=== PATIENT | male | born 1940 | race Caucasian/White ===

== ENCOUNTER 2019-06-01 01:12 | Day surgery (SDC) | payer MEDICARE, SELFPAY ==
[2019-05-12 09:52] VITALS: BMI 24.5
[2019-06-01 07:51] VITALS: BP 134/84; PULSE 58; RESP 16; TEMP 35.9; O2SAT 98
[2019-06-01] MEDS: LACTATED RINGERS 1,000 ML 150 ML IV CONT (08:06)
--- NOTE | 2019-06-01 08:16 | PM.IMHP ---
H&P: HPI History of Present Illness Chief complaint: Duodenal Ulcer Narrative: Micheal Espinoza is a 79 year old male presents today for EGD. Patient any syncopal episode and melena in 01/2019. EGD was performed by Dr. Jeffrey and he had noted two duodnal ulcers that were not actively bleeding. He was on PPI BID for atleast 3 months and does not remember when he stopped taking it. He does complain of abdominal bloating after he lays down at night but relates it to eating junk food . He denies any dysphagia, oydnophagia, acid reflux, heartburn, or abdominal pain. He has had no further melena and denies hematochezia, constipation and diarrhea. Denies abnormal weight loss, fever or chills. Denies family hx of GI maligancies. Review of Systems Review of Systems: All systems reviewed & are unremarkable except as noted in HPI and below PMFSH Past Medical History Medical History (Updated 06/01/19 @ 08:22 by Emelia Santoro, [employer] SUPERVISOR) Duodenal ulcer disease Hx of adenomatous colonic polyps Hx of deep venous thrombosis Hx of prostatic malignancy JOE (iron deficiency anemia) Surgical History Surgical History (Updated 06/01/19 @ 08:21 by Emelia Santoro, [employer] SUPERVISOR) Hx of cholecystectomy Hx of colonoscopy Hx of esophagogastroduodenoscopy Hx of external ear surgery Social History Social History Smoking status: Former smoker Second hand tobacco smoke exposure: No Smoking end date: 04/19/1961 Alcohol intake: never Meds Home Medications and Allergies Home Medications Medication Instructions Recorded Confirmed Type ferrous sulfate 325 mg (65 mg 325 mg PO DAILY #30 tablet 03/03/19 06/01/19 Rx iron) tablet midodrine 10 mg tablet 10 mg PO TID #90 tablet 03/03/19 06/01/19 Rx pantoprazole 40 mg tablet,delayed 40 mg PO BID #60 tablet 03/03/19 05/12/19 Rx release Allergies Allergy/AdvReac Type Severity Reaction Status Date / Time No Known Allergies Allergy Unknown Verified 06/01/19 07:47 Vital Signs Vital Signs - 24 hr 06/01/19 07:51 Temperature 35.9 C L Pulse Rate 58 L Respiratory Rate 16 Blood Pressure 134/84 Pulse Oximetry 98 Exam Const: General: cooperative, healthy appearing, comfortable, alert and awake Nutritional Appearance: average body habitus Orientation/consciousness: oriented to person, oriented to place, oriented to time and patient oriented x3 Limitations: no limitations HENMT: Head: normal to inspection and normocephalic Ears: hearing grossly impaired (hearing aid noted in left ear) Mouth: Yes Normal oral and palatal mucosa present and Yes moist mucous membranes Neck: Neck: normal visual inspection, supple and no JVD Carotids: no bruits Resp: Effort & Inspection: normal respiratory effort and no respiratory distress Auscultation: clear to auscultation bilaterally Cardio: Rate: regular rate Rhythm: regular rhythm Heart sounds: S1 normal heart sound present, S2 normal heart sound present, no gallops, no murmurs and no rubs GI: Inspection: normal to inspection GI Palp: No abdominal tenderness and No No hepatosplenomegaly present Percussion: Yes normal to percussion Auscultation: normal bowel sounds Rectal Exam: deferred Skin: General skin exam: normal color Lesions: no lesions Rashes: no rashes Neuro: General: oriented to person, oriented to place, oriented to time, patient oriented x3 and moves all extremities Cognition (Neuro): normal cognition Speech: normal speech Gait exam (Neuro): Normal gait present Extrem: General: normal to inspection Psych: Appearance: grossly normal Mental Status: mental status grossly normal Speech and movement: Normal speech and movement present Affect: normal affect Attitude: cooperative Thought process: Normal thought process present Assessment and Plan Assessment and plan (1) Duodenal ulcer disease: Code(s): K26.9 - Duodenal ulcer, unspecified as acute or chronic, without
--- NOTE | 2019-06-01 08:38 | WPDANESEPPF ---
Anes - Initial Pre Proc Eval Procedure: Operation Date: 06/01/19 08:30 Proposed Procedures p Esophagogastroduodenoscopy - Martir Jeffrey DO Date/Time: 06/01/19 08:38 Surgeon: Martir Jeffrey DO Pre Op Diagnosis: Duodenal Ulcer Patient Data Age: 79 Gender: M Height: 5 ft 11 in Weight: 81.2 kg Last Vital Signs Temp 96.7 F L 06/01/19 07:51 Pulse 58 L 06/01/19 07:51 Resp 16 06/01/19 07:51 BP 134/84 06/01/19 07:51 Pulse Ox 98 06/01/19 07:51 Allergies Allergy/AdvReac Type Severity Reaction Status Date / Time No Known Allergies Allergy Unknown Verified 06/01/19 07:47 Home Medications Medication Instructions Recorded Confirmed Type ferrous sulfate 325 mg (65 mg 325 mg PO DAILY #30 tablet 03/03/19 06/01/19 Rx iron) tablet midodrine 10 mg tablet 10 mg PO TID #90 tablet 03/03/19 06/01/19 Rx pantoprazole 40 mg tablet,delayed 40 mg PO BID #60 tablet 03/03/19 05/12/19 Rx release Patient hx anesthesia problems: none Family hx anesthesia problems: none PMFSH Past Medical History Medical History (Updated 06/01/19 @ 08:22 by Emelia Santoro, [employer] ENGINEER[employer]) Duodenal ulcer disease Hx of adenomatous colonic polyps Hx of deep venous thrombosis Hx of prostatic malignancy JOE (iron deficiency anemia) Surgical History Surgical History (Updated 06/01/19 @ 08:21 by Emelia Santoro, [employer] ENG[employer]ER[employer]) Hx of cholecystectomy Hx of colonoscopy Hx of esophagogastroduodenoscopy Hx of external ear surgery Social History Social History Smoking status: Former smoker Second hand tobacco smoke exposure: No Smoking end date: 04/19/1961 Alcohol intake: never Anes - Eval Final PreProcedure Day of Procedure 06/01/19 08:38 Patient weight: normal Heart: regular rate and rhythm Lungs: clear to auscultation Airway: Mallampati scale class II Neurological: alert and oriented Last oral intake: >/= 8 hours ASA classification: II Emergent: no Anesthetic plan: proceed Anesthesia type and monitoring: general GIVS and standard monitoring Informed Consent: The patient's anesthetic plan and its attendant risks and benefits were discussed with the patient/family/POA. Questions were solicited and answers provided to the satisfaction of the patient/family/POA.
[2019-06-01 08:59] VITALS: BP 101/52; PULSE 58; RESP 18; O2SAT 92
[2019-06-01 09:09] VITALS: BP 106/56; PULSE 57; RESP 15; O2SAT 97
[2019-06-01 09:19] VITALS: BP 137/79; PULSE 54; RESP 15; O2SAT 99
== END 2019-06-01 09:53 | disposition home or self-care (01) ==
PROVIDERS: PCP Internal Medicine; Visit Provider Internal Medicine Gastroenterology
PROC: 0DJ08ZZ Inspection of Upper Intestinal Tract, Via Natural or Artificial Opening Endoscopic (ICD-10-PCS; CPT 43235; principal; 2019-06-01 08:30)
DX: Z09 Encounter for follow-up examination after completed treatment for conditions other than malignant neoplasm (principal); K31.7 Polyp of stomach and duodenum; Z87.11 Personal history of peptic ulcer disease; D50.9 Iron deficiency anemia, unspecified; Z85.46 Personal history of malignant neoplasm of prostate; Z87.891 Personal history of nicotine dependence
CPT/HCPCS: 43239; 87081; 88305; 88342; J2704; J7120

== ENCOUNTER → 2020-05-28 14:29 | Outpatient (CLI) | payer MEDICARE, SELFPAY ==
--- NOTE | ~2020-05-28 | XR_ITS ---
EXAMINATION: XR chest 2V 05/28/2020 14:47 INDICATION: Cough and chest pain PROCEDURE: 2 view chest COMPARISON: Comparison to multiple prior studies sequentially, with oldest reviewed study dated 12/04. FINDINGS: The lungs are clear. The cardiomediastinal silhouette is within normal limits. There are no pleural effusions. There is no pneumothorax suspected. IMPRESSION: 1: NO ACUTE CARDIOPULMONARY DISEASE. Reviewed, dictated and finalized at location B. IT COORDINATOR
== END ==
PROVIDERS: PCP Internal Medicine; Visit Provider Internal Medicine
DX: R05 Cough (principal)
CPT/HCPCS: 71046

== ENCOUNTER → 2021-03-14 00:31 | Outpatient (CLI) | payer MEDICARE, SELFPAY ==
[2021-03-14 17:10] LABS: SARS-CoV-2 RNA PCR Positive
== END ==
PROVIDERS: PCP Internal Medicine; Visit Provider Internal Medicine
DX: U07.1 COVID-19 (principal)
CPT/HCPCS: C9803; U0003; U0005

== ENCOUNTER 2021-03-18 09:39 | Outpatient (RCR) | payer MEDICARE, SELFPAY ==
[2021-03-18] MEDS: ACETAMINOPHEN 325 MG TABLET 650 MG PO (14:39)
[2021-03-18] MEDS: FAMOTIDINE 20 MG TABLET PO (14:40)
[2021-03-18] MEDS: diphenhydrAMINE HCl CAP 25 MG CAPSULE PO (14:40)
[2021-03-18 14:46] VITALS: BP 107/68; PULSE 64; RESP 20; TEMP 36.2; O2SAT 98
[2021-03-18 16:15] VITALS: BP 110/66
--- NOTE | 2021-03-19 12:57 | PC.NURSE ---
Spoke to MR Espinoza and he is feeling better than yesterday,and he is doing well. He has no questions at this time.
== END 2021-03-18 16:00 ==
LOC: AMCINF 09:39
PROVIDERS: PCP Internal Medicine; Visit Provider Internal Medicine Hematology & Oncology
DX: U07.1 COVID-19 (principal)
CPT/HCPCS: A9270; M0243; Q0243

== ENCOUNTER 2022-04-21 10:59 | Outpatient (CLI) | payer MEDICARE, SELFPAY ==
[2022-04-21 12:33] LABS: Influenza A QL RT-PCR Negative (Negative); Influenza B QL RT-PCR Negative (Negative); SARS-CoV-2 RNA PCR Positive
== END 2022-04-21 11:00 | disposition home or self-care (01) ==
PROVIDERS: PCP Otolaryngology; Visit Provider Internal Medicine
DX: U07.1 COVID-19 (principal)
CPT/HCPCS: 87636

== ENCOUNTER 2022-09-01 09:56 | Emergency (ER) | payer MEDICARE, SELFPAY ==
--- NOTE | ~2022-09-01 | US_ITS ---
EXAMINATION:US venous doppler LE RT INDICATION:Right lower extremity pain TECHNIQUE: Multiple grayscale, color flow and Doppler images of the right lower extremity deep venous systems were obtained and reviewed. COMPARISON:No prior studies for comparison. FINDINGS: The common femoral, superficial femoral and popliteal veins demonstrate normal respiratory variation, augmentation and compressibility. Color flow is also seen within the posterior tibial, pe roneal, and profunda veins. There is superficial venous thrombosis of the right greater saphenous vei n. IMPRESSION: 1: No lower extremity deep venous thrombosis. 2: Superficial venous thrombosis of the right greater saphenous vein. Reviewed, dictated and finalized at location L.
[2022-09-01 10:00] VITALS: PULSE 72; RESP 18; TEMP 36.6; O2SAT 96
[2022-09-01 10:13] LABS: Basophils Absolute Auto 0.1 K/mm3 (0.0-0.1); Basophils Percent Auto 0.8 % (0.2-1.2); Eosinophils Absolute Auto 0.7 K/mm3 (0-0.3); Eosinophils Percent Auto 7.7 % (0-4.4); Hemoglobin 16.4 g/dL (14.0-18.0); Immature Granulocyte Absolute 0.02 K/mm3 (0.00-0.031); Immature Granulocyte Percent A 0.2 % (0-0.5); Lymphocytes Absolute Auto 1.82 K/mm3 (0.9-3.2); Lymphocytes Percent Auto 21.7 % (18.3-44.2); Mean Corpuscular HGB Conc 33.5 g/dl (32-36); Mean Corpuscular Volume 95.5 fl (80-100); Mean Platelet Volume 10.6 fl (7.4-10.4); Monocytes Absolute Auto 0.7 K/mm3 (0.1-0.6); Monocytes Percent Auto 8.7 % (2.6-8.5); Neutrophils Absolute Auto 5.1 K/mm3 (1.3-6.7); Neutrophils Percent Auto 60.9 % (45.5-73.1); Platelet Count Result 180 k/mm3 (150-375); Red Blood Count 5.13 M/mm3 (4.6-6.20); Red Cell Distribution Width 13.7 % (11.5-14.5); White Blood Count 8.4 K/mm3 (4.5-10.0)
[2022-09-01 10:22] LABS: Anion Gap 5 mmol/L (8-16); Blood Urea Nitrogen 17 mg/dL (9-20); Calcium 9.2 mg/dL (8.4-10.2); Carbon Dioxide 30 mmol/L (22-30); Chloride 103 mmol/L (98-107); Estimated CRCL calculation 44 ml/min; Estimated Glomerular Filt Rate 58; Glucose 131 mg/dL (65-110); Potassium 4.1 mmol/L (3.4-5.0); Sodium 138 mmol/L (137-145)
[2022-09-01 10:40] LABS: Partial Thromboplastin Time 28.8 SECONDS (22.3-36.8)
[2022-09-01 10:57] LABS: INR 1.1; Prothrombin Time 14.5 Seconds (11.1-14.7)
--- NOTE | 2022-09-01 11:42 | ED.EXTPRO ---
HPI - Extremity Problem General Chief complaint: Extremity Problem,Nontraumatic Stated complaint: bump on leg, r/o dvt Time Seen by Provider: 09/01/22 10:41 Source: patient Mode of arrival: ambulatory Limitations: no limitations History of Present Illness HPI Narrative: This is an 82-year-old male presents the ED with chief complaint of right thigh vein swelling x2 days. He has additional complaints of some right lower leg redness and swelling. States the areas are painful. He feels that they might be separate issues. PMH of DVT in the past. Denies any chest pain, shortness of breath, fevers, chills. Related Data Home Medications Medication Instructions Recorded Confirmed aspirin 81 mg tablet,delayed 325 mg PO DAILY 09/01/22 09/01/22 release (Adult Low Dose Aspirin) Allergies Allergy/AdvReac Type Severity Reaction Status Date / Time No Known Allergies Allergy Unknown Verified 09/01/22 13:49 Review of Systems Review of Systems: CONSTITUTIONAL: Denies fever, chills, or sweats. EYES: Denies visual changes, redness, or discharge. ENT: Denies rhinorrhea, congestion, sore throat, or otalgia. CARDIOVASCULAR: Denies chest pain, palpitations, or edema. RESPIRATORY: Denies cough or dyspnea. GASTROINTESTINAL: Denies abdominal pain, nausea, vomiting, or diarrhea. GENITOURINARY: Denies dysuria or hematuria. SKIN: Denies rash or itching. MUSCULOSKELETAL: See HPI NEUROLOGIC: Denies headache, numbness, dizziness, or weakness. PSYCHIATRIC: Denies anxiety or depression. [facility] Past Medical History Medical History Duodenal ulcer disease Hx of adenomatous colonic polyps Hx of deep venous thrombosis Hx of prostatic malignancy JOE (iron deficiency anemia) Surgical History Surgical History Hx of cholecystectomy Hx of colonoscopy Hx of esophagogastroduodenoscopy Hx of external ear surgery Family History Family History Other Carcinoma of colon Family history of malignant neoplasm of thyroid Social History Social History Smoking packs per day: 1 Smoking cigarettes per day: 20.0 Years smoked: 5 Smoking pack-years: 5.00 Smoking status: Former smoker Tobacco type: cigarettes Second hand tobacco smoke exposure: No Smoking end date: 04/19/1961 Alcohol intake: never Substance use: never Lack of Transportation: No Lack of Food: Never True Current Housing: I Have Housing Concerned About Future Housing: No Difficulty Paying Gas/Electric Bills: No Difficulty Paying for Meds: No Currently Unemployed: No Education: Master's Degree or Higher Difficulty w/ Childcare or Family Care: No Spiritual care concerns: No Exam Narrative: GENERAL: Well-appearing, well-nourished, and in no acute distress. HEAD: Normocephalic, atraumatic. EYES: PERRLA and EOMI. ENT: Nares clear, no rhinorrhea or epistaxis. Mucous membranes moist. Oropharynx without tonsillar hypertrophy exudate or other lesions. NECK: Supple. No adenopathy or masses. CHEST: No respiratory distress. Clear to auscultation. No wheezes rales or rhonchi HEART: Regular rate and rhythm. No murmur heard. Normal peripheral pulses. ABDOMEN: Soft, nontender, nondistended, normal active bowel sounds. EXTREMITIES: Right medial thigh palpable cord. Mild tenderness. In the right lower leg there is a 4 cm area of erythema. There is a central punctate lesion with this. Skin is slightly raised. No significant lower extremity edema on the right side. Left lower extremity is benign SKIN: Warm, dry, no rash. NEURO: Alert and oriented x3. No focal deficits. PSYCH: Normal mood and affect. Course Course Emergency Course: Consultation 1149: Spoke with patient's PCP, he prefers to start on Lovenox dose here as well as aspir
[2022-09-01] MEDS: CEPHALEXIN 500 MG CAPSULE PO (11:56)
[2022-09-01] MEDS: ASPIRIN 325 MG TABLET PO (11:56)
[2022-09-01] MEDS: ENOXAPARIN 100 MG/ML SYRINGE 85 MG SUB-Q (11:57)
[2022-09-01 12:12] VITALS: BP 137/92; PULSE 68; RESP 16; O2SAT 100
== END 2022-09-01 12:15 | disposition home or self-care (01) ==
PROVIDERS: Emergency Medicine; Emergency Provider Physician Assistant; PCP Internal Medicine
DX: I82.811 Embolism and thrombosis of superficial veins of right lower extremity (principal); M79.604 Pain in right leg; D50.9 Iron deficiency anemia, unspecified; Z90.49 Acquired absence of other specified parts of digestive tract; Z85.46 Personal history of malignant neoplasm of prostate; Z86.718 Personal history of other venous thrombosis and embolism; Z86.010 Personal history of colon polyps; Z87.891 Personal history of nicotine dependence; Z79.82 Long term (current) use of aspirin
CPT/HCPCS: 36415; 80048; 85025; 85610; 85730; 93971; 96372; 99284; A9270; J1650

== ENCOUNTER 2022-09-27 11:53 | Observation (INO) | payer MEDICARE, SELFPAY ==
[2022-09-27] VITALS (22 sets, daily range): BP systolic 76–155; BP diastolic 59–130; PULSE 55–90; RESP 12–32; TEMP 35.6–36.1; O2SAT 96–100; BMI 26.7
--- NOTE | 2022-09-27 12:16 | ED.GIBLEED ---
HPI - GI Bleed General Chief complaint: GI Bleed Stated complaint: dizziness Time Seen by Provider: 09/27/22 12:04 Source: patient and family Mode of arrival: ambulatory Limitations: no limitations History of Present Illness HPI Narrative: 82 years old white female came by private car from home complaining of funny feeling in the head and weakness when he gets up to walk. Also been feeling weird feeling in the stomach like bloating. He denies any fever, chills, nausea, vomiting. History of cholecystectomy and peptic ulcer disease. Currently patient on no medications. He does not smoke or drink or uses drugs. Related Data Home Medications Medication Instructions Recorded Confirmed aspirin 81 mg tablet,delayed 325 mg PO DAILY 09/01/22 09/01/22 release (Adult Low Dose Aspirin) Allergies Allergy/AdvReac Type Severity Reaction Status Date / Time No Known Allergies Allergy Unknown Verified 09/27/22 12:11 Review of Systems Review of Systems: All systems reviewed & are unremarkable except as noted in HPI and below PMFSH Past Medical History Medical History Duodenal ulcer disease Hx of adenomatous colonic polyps Hx of deep venous thrombosis Hx of prostatic malignancy JOE (iron deficiency anemia) Surgical History Surgical History Hx of cholecystectomy Hx of colonoscopy Hx of esophagogastroduodenoscopy Hx of external ear surgery Family History Family History Other Carcinoma of colon Family history of malignant neoplasm of thyroid Social History Social History Smoking packs per day: 1 Smoking cigarettes per day: 20.0 Years smoked: 5 Smoking pack-years: 5.00 Smoking status: Former smoker Tobacco type: cigarettes Second hand tobacco smoke exposure: No Smoking end date: 04/19/1961 Alcohol intake: never Substance use: never Lack of Transportation: No Lack of Food: Never True Current Housing: I Have Housing Concerned About Future Housing: No Difficulty Paying Gas/Electric Bills: No Difficulty Paying for Meds: No Currently Unemployed: No Education: Master's Degree or Higher Difficulty w/ Childcare or Family Care: No Spiritual care concerns: No Exam Narrative: General appearance: Well-developed, well-nourished Skin: Normal color Head: Normocephalic, nontraumatic Eyes: Clear conjunctiva ENT: Oropharynx normal, ears normal, nose normal Neck: Supple, nontender Chest and respiratory: Airway patent, no respiratory distress, no accessory muscle use Heart: Regular rate/rhythm Abdomen: Soft, nontender, no organomegaly, quiet bowel sounds rectal exam showed dark black tarry stool, guaiac positive Vascular: Normal peripheral pulses, normal capillary refill. Musculoskeletal: Normal range of motion, nontender back Neurologic: Alert and oriented ?3, PUMP AND STILL OPERATOR is normal as tested, no gross motor deficit Course Reevaluation(s) Reevaluation #1: Patient denies any new symptoms since arrival to the ED until the time of admission. Date: 09/27/22 Time: 13:09 Consultations Consultation #1: Dr. Gomez Date: 09/27/22 Time: 13:08 Vital Signs Vital signs: Vital Signs Temperature 36.1 C L 09/27/22 11:55 Pulse Rate 69 09/27/22 11:55 Respiratory Rate 16 09/27/22 11:55 Blood Pressure 103/64 09/27/22 11:55 Pulse Oximetry 100 09/27/22 11:55 Oxygen Delivery Room Air 09/27/22 11:55 Temperature 36.1 C L 09/27/22 11:55 Pulse Rate 63 09/27/22 12:30 Respiratory Rate
[2022-09-27 12:23] LABS: Basophils Absolute Auto 0.1 K/mm3 (0.0-0.1); Basophils Percent Auto 0.8 % (0.2-1.2); Eosinophils Absolute Auto 0.6 K/mm3 (0-0.3); Eosinophils Percent Auto 8.5 % (0-4.4); Hematocrit 37.6 % (42.0-52.0); Hemoglobin 12.8 g/dL (14.0-18.0); Immature Granulocyte Absolute 0.04 K/mm3 (0.00-0.031); Immature Granulocyte Percent A 0.6 % (0-0.5); Lymphocytes Absolute Auto 1.35 K/mm3 (0.9-3.2); Lymphocytes Percent Auto 20.8 % (18.3-44.2); Mean Corpuscular Hemoglobin 32.4 pg (26-34); Mean Corpuscular Volume 95.2 fl (80-100); Mean Platelet Volume 10.5 fl (7.4-10.4); Monocytes Absolute Auto 0.5 K/mm3 (0.1-0.6); Monocytes Percent Auto 7.2 % (2.6-8.5); Neutrophils Percent Auto 62.1 % (45.5-73.1); Platelet Count Result 221 k/mm3 (150-375); Red Blood Count 3.95 M/mm3 (4.6-6.20); Red Cell Distribution Width 14.9 % (11.5-14.5); White Blood Count 6.5 K/mm3 (4.5-10.0)
[2022-09-27] MEDS: PANTOPRAZOLE SODIUM IV 40 MG VIAL IV PUSH (12:24)
[2022-09-27 12:33] LABS: Alanine Aminotransferase 21 U/L (6-50); Albumin Level 3.7 g/dL (3.5-5.1); Alkaline Phosphatase 37 U/L (38-126); Anion Gap 4 mmol/L (8-16); Aspartate Amino Transferase 25 U/L (17-59); Blood Urea Nitrogen 14 mg/dL (9-20); Calcium 9.2 mg/dL (8.4-10.2); Carbon Dioxide 26 mmol/L (22-30); Chloride 105 mmol/L (98-107); Estimated Glomerular Filt Rate 58; Glucose 151 mg/dL (65-110); Potassium 4.1 mmol/L (3.4-5.0); Sodium 135 mmol/L (137-145)
[2022-09-27 12:35] LABS: INR 1.1; Partial Thromboplastin Time 28.4 SECONDS (22.3-36.8); Prothrombin Time 14.4 Seconds (11.1-14.7)
--- NOTE | 2022-09-27 13:22 | PM.IMHP ---
H&P: HPI History of Present Illness Date/Time: 09/27/22 22:00 Chief Complaint: Weakness and dizziness. Narrative: This is a very pleasant 82-year-old male with history of peptic ulcers, colon polyps, and prostate cancer who presented to the emergency department via private vehicle for evaluation of weakness and dizziness. Patient provides the following history. The last several days he has been experiencing lightheadedness and dizziness, particularly when going from a seated to standing position. He has also had a mild discomfort in his abdomen with bloating and indigestion. Several days ago he took a Pepto-Bismol which did not seem to help much. He has also noticed that his stools are quite a bit darker than usual. He is not currently taking any medications at home however it should be noted that he was seen in the emergency department on 09/01/2022 with swelling in his right thigh at which time he was diagnosed with a superficial thrombus of the greater saphenous vein. He was prescribed 325 mg of aspirin which he took for may be a couple of weeks only. The pain and swelling in that pain has improved significantly. He denies significant alcohol and caffeine use. He has not had any recent change in stressors. He denies nausea and vomiting. He has not noticed any bright red blood in the stools. In the ED his stool was dark and Hemoccult positive. Hemoglobin today is 12 on his baseline is around 16. He is being admitted in this setting for close monitoring and GI consultation. Review of Systems Review of Systems: Twelve systems were reviewed and are negative except for as per HPI. [facility] Past Medical History Medical History (Updated 09/28/22 @ 01:16 by Virginia Lau PA-C) Acute blood loss anemia Adenomatous colon polyp Deep venous thrombosis Duodenal ulcer disease Gastroesophageal reflux disease Hyperlipidemia Iron deficiency anemia Lightheadedness Melena Prostate cancer Surgical History Surgical History (Updated 09/27/22 @ 13:24 by Virginia Lau PA-C) History of cataract extraction with lens replacement History of cholecystectomy (2012) History of colonoscopy with polypectomy History of ear surgery History of esophagogastroduodenoscopy History of tonsillectomy Family History Family History Other Carcinoma of colon Family history of malignant neoplasm of thyroid Social History Social History (Updated 09/29/22 @ 12:56 by Virginia Lau PA-C) Social History: Surrogate medical decision maker: Sven Espinoza, son. Code status: Full code. Smoking packs per day: 1 Smoking cigarettes per day: 20.0 Years smoked: 5 Smoking pack-years: 5.00 Smoking status: Former smoker Tobacco type: cigarettes Second hand tobacco smoke exposure: No Smoking end date: 04/19/1961 Alcohol intake: never Substance use: never Substance use type: does not use Lack of Transportation: No Lack of Food: Never True Current Housing: I Have Housing Concerned About Future Housing: No Difficulty Paying Gas/Electric Bills: No Difficulty Paying for Meds: No Currently Unemployed: No Education: Bachelor's Degree Difficulty w/ Childcare or Family Care: No Spiritual care concerns: No Meds Home Medications and Allergies Home Medications Medication Instructions Recorded Confirmed Type pantoprazole 40 mg tablet,delayed 40 mg PO Q12HR #60 tabs 09/28/22 Rx release Allergies Allergy/AdvReac Type Severity Reaction Status Date / Time No Known Allergies Allergy Unknown Verified 09/28/22 10:29 Vital Signs Vital Signs - 24 hr 09/27/22 11:55 09/27/22 12:15 09/27/22 12:16 Temperature 97.0 F L Pulse Rate 69 66 72 Respiratory Rate 16 Blood Pressure 103/64 113/71 89/66 L Pulse Oximetry 100 Oxygen Delivery Room Air 09/27/22 12:16 09/27/22 12:30 Temperature Pulse Rate 90 63 Respiratory Rate 16 Blood
[2022-09-27] MEDS: SODIUM CHLORIDE 0.9% IV 1,000 ML 100 ML IV CONT (13:55)
--- NOTE | 2022-09-27 14:38 | PC.NURSE ---
Pt states adamantly that he takes no medications of any kind whatsoever.
--- NOTE | 2022-09-27 15:01 | PC.NURSE ---
During admission assessment, pt stated that the dizziness occurs if he stands up really fast but mostly as he is walking. Pt also stated that he has had multiple surgeries on his right ear; and, over the last few weeks he has felt pressure in the right ear and a popping.
--- NOTE | 2022-09-27 18:06 | WPDGICN ---
Assessment and Plan Assessment and plan (1) GI bleed: Qualifiers: GI bleed type/associated pathology: unspecified gastrointestinal hemorrhage type Qualified Code(s): K92.2 - Gastrointestinal hemorrhage, unspecified Code(s): K92.2 - Gastrointestinal hemorrhage, unspecified Status: Acute Assessment and Plan: iv protonix will do egd tomorrow ? ulcer, gastritis, etc monitor for signs of bleeding (2) Melena: Code(s): K92.1 - Melena Status: Acute Assessment and Plan: obvious during exam in ER egd in am (3) Acute blood loss anemia: Code(s): D62 - Acute posthemorrhagic anemia Status: Acute Assessment and Plan: trend h/h (4) Lightheadedness: Code(s): R42 - Dizziness and giddiness Status: Acute Assessment and Plan: probably from bleeding medical support (5) Hx of peptic ulcer: Code(s): Z87.11 - Personal history of peptic ulcer disease Status: Acute GI Consult Note Consult date/time: 09/27/22 18:06 Reason for consult: melena HPI: Micheal Espinoza is a 82 year old male ?with history of prostate cancer, ulcer diagnosed about 2 years ago but does not remember having egd here with 4 days of progressive lightheadedness after getting up and walking, also weird feeling in the stomach and bloating, noted dark stools and today unsteady gait after standing up. Hgb 12 (baseline 16). ER exam revealed dark stool with positive blood. ?Had colonoscopy over 5 years ago. Review of Systems Constitutional: Constitutional: Denies chills Eyes: Eyes: Denies blurry vision ENT: Reports Normal hearing present Cardiovascular: Cardiovascular: Denies chest pain Respiratory: Respiratory: Denies cough Gastrointestinal: Gastrointestinal: Reports melena Genitourinary: Genitourinary: Denies urinary frequency Musculoskeletal: Musculoskeletal: Denies back pain Integumentary/Breasts: Skin/Breast: Denies rash Neurologic: Denies Abnormal speech present Psychiatric: Psychiatric: Denies behavioral changes [facility] Past Medical History Medical History (Updated 09/27/22 @ 18:11 by Lars Blanco MD) Acute blood loss anemia Adenomatous colon polyp Deep venous thrombosis Duodenal ulcer disease Gastroesophageal reflux disease Hyperlipidemia Iron deficiency anemia Lightheadedness Melena Prostate cancer Surgical History Surgical History (Updated 09/27/22 @ 13:24 by Virginia Lau PA-C) History of cataract extraction with lens replacement History of cholecystectomy (2012) History of colonoscopy with polypectomy History of ear surgery History of esophagogastroduodenoscopy History of tonsillectomy Family History Family History Other Carcinoma of colon Family history of malignant neoplasm of thyroid Social History Social History (Updated 09/27/22 @ 13:27 by Virginia Lau PA-C) Social History: Surrogate medical decision maker: Code status: Full code. Smoking packs per day: 1 Smoking cigarettes per day: 20.0 Years smoked: 5 Smoking pack-years: 5.00 Smoking status: Former smoker Tobacco type: cigarettes Second hand tobacco smoke exposure: No Smoking end date: 04/19/1961 Alcohol intake: never Substance use: never Substance use type: does not use Lack of Transportation: No Lack of Food: Never True Current Housing: I Have Housing Concerned About Future Housing: No Difficulty Paying Gas/Electric Bills: No Difficulty Paying for Meds: No Currently Unemployed: No Education: Bachelor's Degree Difficulty w/ Childcare or Family Care: No Spiritual care concerns: No Meds Home Medications and Allergies Allergies Allergy/AdvReac Type Severity Reaction Status Date / Time No Known Allergies Allergy Unknown Verified 09/27/22 12:11 Vital Signs Vital Signs - 24 hr 09/27/22 11:55 09/27/22 12:15 0
[2022-09-27 19:38] LABS: IFOB Positive Control Positive; Immunochemical Fecal Occult Bl Negative (N)
[2022-09-27 20:28] LABS: Hematocrit 36.4 % (42.0-52.0); Hemoglobin 12.4 g/dL (14.0-18.0)
[2022-09-28] VITALS (11 sets, daily range): BP systolic 84–119; BP diastolic 51–73; PULSE 56–81; RESP 14–20; TEMP 36.2–36.4; O2SAT 97–98
[2022-09-28] MEDS: SODIUM CHLORIDE 0.9% IV 1,000 ML 100 ML IV CONT (00:23)
[2022-09-28 01:33] LABS: Hematocrit 34.4 % (42.0-52.0); Hemoglobin 11.7 g/dL (14.0-18.0)
[2022-09-28 06:30] LABS: Hematocrit 35.7 % (42.0-52.0); Hemoglobin 11.7 g/dL (14.0-18.0); Mean Corpuscular HGB Conc 32.8 g/dl (32-36); Mean Corpuscular Hemoglobin 31.9 pg (26-34); Mean Corpuscular Volume 97.3 fl (80-100); Mean Platelet Volume 10.7 fl (7.4-10.4); Platelet Count Result 213 k/mm3 (150-375); Red Blood Count 3.67 M/mm3 (4.6-6.20); Red Cell Distribution Width 14.8 % (11.5-14.5); White Blood Count 8.2 K/mm3 (4.5-10.0)
[2022-09-28 06:52] LABS: Anion Gap 5 mmol/L (8-16); Blood Urea Nitrogen 11 mg/dL (9-20); Calcium 8.6 mg/dL (8.4-10.2); Carbon Dioxide 22 mmol/L (22-30); Chloride 108 mmol/L (98-107); Estimated CRCL calculation 53 ml/min; Estimated Glomerular Filt Rate > 60; Glucose 89 mg/dL (65-110); Magnesium 2.2 mg/dL (1.6-2.3); Sodium 135 mmol/L (137-145)
[2022-09-28 07:37] LABS: Hemoglobin A1C 5.2 % (<5.7)
--- NOTE | 2022-09-28 08:25 | WPDANESEPPF ---
Anes - Initial Pre Proc Eval Procedure: Operation Date: 09/28/22 14:30 Proposed Procedures p Esophagogastroduodenoscopy - Lars Blanco MD Date/Time: 09/28/22 08:25 Surgeon: Sis Trotter PA-C Pre Op Diagnosis: GI Bleed Patient Data Age: 82 Gender: M Height: 1.78 m Weight: 83.7 kg Last Vital Signs Temp 36.2 C L 09/28/22 06:00 Pulse 63 09/28/22 06:00 Resp 14 09/28/22 06:00 BP 119/73 09/28/22 06:00 Pulse Ox 98 09/28/22 06:00 O2 Del Method Room Air 09/27/22 14:56 Allergies Allergy/AdvReac Type Severity Reaction Status Date / Time No Known Allergies Allergy Unknown Verified 09/28/22 10:29 Home Medications Medication Instructions Recorded Confirmed Type No Home Medications 09/27/22 09/28/22 History Laboratory Tests 09/27/22 09/27/22 09/27/22 12:08 14:26 18:54 WBC 6.5 K/mm3 (4.5-10.0) RBC 3.95 L M/mm3 (4.6-6.20) Hgb 12.8 L D g/dL 13.0 L g/dL (14.0-18.0) (14.0-18.0) Hct 37.6 L % 38.0 L % (42.0-52.0) (42.0-52.0) MCV 95.2 fl (80-100) MCH 32.4 pg (26-34) MCHC 34.0 g/dl (32-36) RDW 14.9 H % (11.5-14.5) Plt Count 221 k/mm3 (150-375) MPV 10.5 H fl (7.4-10.4) Immature Gran % (Auto) 0.6 H % (0-0.5) Neut % (Auto) 62.1 % (45.5-73.1) Lymph % (Auto) 20.8 % (18.3-44.2) [place] % (Auto) 7.2 % (2.6-8.5) Eos % (Auto) 8.5 H % (0-4.4) Baso % (Auto) 0.8 % (0.2-1.2) Lymph # (Auto) 1.35 K/mm3 (0.9-3.2) [place] # (Auto) 0.5 K/mm3 (0.1-0.6) Eos # (Auto) 0.6 H K/mm3 (0-0.3) Baso # (Auto) 0.1 K/mm3 (0.0-0.1) Abs Immat Gran (auto) 0.04 H K/mm3 (0.00-0.031) Absolute Neuts (auto) 4.0 K/mm3 (1.3-6.7) Absolute Nucleated RBC 0.0 K/mm3 (0.0-0.012) Nucleated RBC % 0.0 % (0.0-0.2) PT 14.4 Seconds (11.1-14.7) INR 1.1 APTT 28.4 SECONDS (22.3-36.8) Sodium 135 L mmol/L (137-145) Potassium 4.1 mmol/L (3.4-5.0) Chloride 105 mmol/L (98-107) Carbon Dioxide 26 mmol/L (22-30) Anion Gap 4 L mmol/L (8-16) BUN 14 mg/dL (9-20) Creatinine 1.20 mg/dL (0.7-1.3) Estim Creat Clear Calc Not Reportable Estimated GFR 58 L (59 - ) Glucose 151 H mg/dL (65-110) Hemoglobin A1c Calcium 9.2 mg/dL (8.4-10.2) Magnesium Total Bilirubin 1.0 mg/dL (0.2-1.3) AST 25 U/L (17-59) ALT 21 U/L (6-50) Alkaline Phosphatase 37 L U/L (38-126) Total Protein 6.0 L g/dL (6.3-8.2) Albumin 3.7 g/dL (3.5-5.1) Stl Occult Blood (IFOB) Negative (N) Blood Type A Positive Antibody Screen Negative 09/27/22 09/28/22 09/28/22 20:22 01:25 05:47 WBC 8.2 K/mm3 (4.5-10.0) RBC 3.67 L M/mm3 (4.6-6.20) Hgb 12.4 L g/dL 11.7 L g/dL 11.7 L g/dL (14.0-18.0) (14.0-18.0) (14.0-18.0) Hct 36.4 L % 34.4 L % 35.7 L % (42.0-52.0) (42.0-52.0) (42.0-52.0) MCV 97.3 fl (80-100) MCH 31.9 pg (26-34) MCHC 32.8 g/dl (32-36) RDW 14.8 H % (11.5-14.5) Plt Count 213 k/mm3 (150-375) MPV 10.7 H fl (7.4-10.4) Immature Gran % (Auto) Neut % (Auto) Lymph % (Auto) [place] % (Auto) Eos % (Auto) Baso % (Auto) Lymph # (Auto) [place] # (Auto) Eos # (Auto) Baso # (Auto) Abs Immat Gran (auto) Absolute Neuts (auto) Absolute Nucleated RBC Nucleated RBC % PT INR APTT Sodium 135 L mmol
[2022-09-28] MEDS: PANTOPRAZOLE SODIUM IV 40 MG VIAL IV PUSH (09:13)
[2022-09-28] MEDS: LACTATED RINGERS 1,000 ML 150 ML IV CONT (10:36)
[2022-09-28 14:22] LABS: Hematocrit 38.2 % (42.0-52.0); Hemoglobin 12.8 g/dL (14.0-18.0)
--- NOTE | 2022-09-28 15:07 | PM.DS ---
DS: Admitting Diagnosis Discharge Date 09/28/2022 Admitting Diagnosis Melena DS: Discharge Diagnosis Discharge Diagnosis (1) Melena: Code(s): K92.1 - Melena Status: Acute Assessment and Plan: [place] to be secondary to gastritis and duodenal ulcer seen on EGD. Avoid NSAIDs. Started Protonix 40 mg b.i.d. Outpatient GI follow-up in 3-4 months for repeat EGD (2) Hypotension: Code(s): I95.9 - Hypotension, unspecified Status: Acute Assessment and Plan: Blood pressure soft, stable. Patient reports chronic hypotension. Orthostatic vital signs negative. Patient asymptomatic. Discussed maintain adequate oral hydration. May consider [place] hose/compression stockings if symptomatic with positional changes (3) Superficial thrombosis of right lower extremity: Code(s): I82.811 - Embolism and thrombosis of superficial veins of right lower extremity Status: Acute Assessment and Plan: Noted on 09/01/2022. Was initially taking aspirin, stop taking this prior to admission. Asymptomatic. (4) Gastroesophageal reflux disease: Code(s): K21.9 - Gastro-esophageal reflux disease without esophagitis Status: Acute Assessment and Plan: Continue Protonix DS: Summary Hospital Course Hospital Course: Date of admission: 09/27/2022 Date of discharge: 09/28/2022 Micheal Espinoza is an 82-year-old with a history iron deficiency anemia prostate cancer, GERD duodenal ulcer, resolved DVT, and recently diagnosed superficial thrombosis of right lower extremity presented to the emergency department on 09/27/2022 with complaints of increased weakness, lightheadedness, and dark stools. On presentation to the ED, his vital signs are stable, BP soft at 103/64, hemoglobin 12.8, hematocrit 37.6, additional laboratory workup unremarkable. Patient was admitted to the hospitalist service for further evaluation and management and was seen in consultation by Gastroenterology. Please see above for further details. Underwent EGD which revealed gastritis and duodenal ulcer without active bleeding at time of endoscopy. Patient was started on Protonix 40 mg b.i.d.. Will avoid NSAIDs. Will follow up with GI as an outpatient in 3-4 months to assess for healing. H&H remained stable. BP remained consistent, patient asymptomatic, orthostatics negative. Discussed with the patient worrisome signs and symptoms for which to return and he was educated on his medications. He was discharged in hemodynamically stable condition on 09/28/2022. Time Spent with Patient Time attestation: Total time spent providing and/or coordinating discharge services: 45 minutes Time spent: Greater than 30 minutes Exam Narrative: General: Well-nourished, well-appearing 82-year-old male, sitting up in bed, comfortable, NARD Neuro: awake, alert and oriented x4, speech clear, no focal neuro deficits noted HEENMT: normocephalic, atraumatic, EOMI, sclerae anicteric, hard of hearing Respiratory: clear to auscultation bilaterally, nonlabored breathing Cardio: regular rate, regular rhythm with S1-S2 Abdomen: nondistended, normoactive bowel sounds, soft, nontender to palpation Extremities: no edema, erythema, or tenderness to palpation Skin: no rashes or lesions, warm and dry Psych: appropriate mood and affect, judgment and insight intact DS: Data Data Completed and Pending Pending studies at discharge: Pending at discharge 09/28/22 11:45 Surgical [PTH] Routine Labs on day of discharge: Labs from last 24 hours 09/28/22 09/28/22 09/28/22 14:17 05:47 01:25 WBC 8.2 RBC 3.67 L Hgb 12.8 L 11.7 L 11.7 L Hct 38.2 L 35.7 L 34.4 L MCV 97.3 MCH 31.9 MCHC 32.8 RDW 14.8 H Plt Count 213 MPV 10.7 H Sodium 135 L Potassium 4.0 Chloride 108 H Carbon Dioxide 22 Anion Gap 5 L BUN 11 Creatinine 1.00 Estim Creat Clear Calc 53 Estimated GFR > 60
== END 2022-09-28 16:05 | disposition home or self-care (01) ==
LOC: ANHED 13:13 → ANH3MEDSUR 09-28 06:52
PROVIDERS: Emergency Medicine; Internal Medicine Gastroenterology; Physician Assistant; Admitting Provider Internal Medicine; Emergency Provider Emergency Medicine; PCP Internal Medicine; Visit Provider Physician Assistant
PROC: 0DJ08ZZ Inspection of Upper Intestinal Tract, Via Natural or Artificial Opening Endoscopic (ICD-10-PCS; CPT 43235; principal; 2022-09-28 14:30)
DX: K44.9 Diaphragmatic hernia without obstruction or gangrene (principal); K29.70 Gastritis, unspecified, without bleeding; K26.9 Duodenal ulcer, unspecified as acute or chronic, without hemorrhage or perforation; K92.1 Melena; I95.9 Hypotension, unspecified; I82.811 Embolism and thrombosis of superficial veins of right lower extremity; K21.9 Gastro-esophageal reflux disease without esophagitis; D50.9 Iron deficiency anemia, unspecified; R73.9 Hyperglycemia, unspecified; E78.5 Hyperlipidemia, unspecified; E66.3 Overweight; Z68.26 Body mass index [BMI] 26.0-26.9, adult; Z90.49 Acquired absence of other specified parts of digestive tract; Z87.891 Personal history of nicotine dependence; Z86.718 Personal history of other venous thrombosis and embolism; Z85.46 Personal history of malignant neoplasm of prostate; Z87.11 Personal history of peptic ulcer disease; Z86.010 Personal history of colon polyps; Z79.82 Long term (current) use of aspirin; Z79.899 Other long term (current) drug therapy
CPT/HCPCS: 43239; 36415; 80048; 80053; 82274; 83036; 83735; 85014; 85018; 85025; 85027; 85610; 85730; 86850; 86900; 86901; 87081; 88305; 88342; 96361; 96374; 96376; 99285; C9113; G0378; J2704; J7030; J7120

== ENCOUNTER 2022-12-29 01:02 | Day surgery (SDC) | payer MEDICARE, SELFPAY ==
[2022-12-14 15:00] VITALS: BMI 28.0
--- NOTE | 2022-12-28 10:02 | P.PNAN_ITS ---
Anes - Initial Pre Proc Eval Procedure: Operation Date: 12/29/22 10:00 Proposed Procedures p Esophagogastroduodenoscopy - Lars Blanco MD Date/Time: 12/28/22 10:02 Surgeon: Lars Blanco MD Pre Op Diagnosis: unspecified duodenal ulcer Patient Data Age: 82 Gender: M Height: 1.78 m Weight: 88.5 kg Allergies Allergy/AdvReac Type Severity Reaction Status Date / Time No Known Allergies Allergy Unknown Verified 12/29/22 08:54 Home Medications Medication Instructions Recorded Confirmed Type pantoprazole 40 mg tablet,delayed 40 mg PO Q12HR #60 tabs 09/28/22 12/14/22 Rx release Patient hx anesthesia problems: none Family hx anesthesia problems: none Results Review: All pre-operative results and documents have been reviewed as part of the pre- operative evaluation. [facility] Past Medical History Medical History (Updated 09/28/22 @ 01:16 by Virginia Lau PA-C) Acute blood loss anemia Adenomatous colon polyp Deep venous thrombosis Duodenal ulcer disease Gastroesophageal reflux disease Hyperlipidemia Iron deficiency anemia Lightheadedness Melena Prostate cancer Surgical History Surgical History (Updated 09/27/22 @ 13:24 by Virginia Lau PA-C) History of cataract extraction with lens replacement History of cholecystectomy (2012) History of colonoscopy with polypectomy History of ear surgery History of esophagogastroduodenoscopy History of tonsillectomy Family History Family History Other Carcinoma of colon Family history of malignant neoplasm of thyroid Social History Social History (Updated 09/29/22 @ 12:56 by Virginia Lau PA-C) Social History: Surrogate medical decision maker: Sven Espinoza, son. Code status: Full code. Smoking packs per day: 1 Smoking cigarettes per day: 20.0 Years smoked: 5 Smoking pack-years: 5.00 Smoking status: Former smoker Tobacco type: cigarettes Second hand tobacco smoke exposure: No Smoking end date: 04/19/1961 Alcohol intake: never Substance use: never Substance use type: does not use Lack of Transportation: No Lack of Food: Never True Current Housing: I Have Housing Concerned About Future Housing: No Difficulty Paying Gas/Electric Bills: No Difficulty Paying for Meds: No Currently Unemployed: No Education: Bachelor's Degree Difficulty w/ Childcare or Family Care: No Living arrangements: with family Spiritual care concerns: No Anes - Eval Final PreProcedure Day of Procedure 12/28/22 10:02 Patient weight: overweight Heart: regular rate and rhythm Lungs: clear to auscultation Airway: Mallampati scale class II Neurological: alert and oriented Last oral intake: >/= 8 hours ASA classification: II Emergent: no Anesthetic plan: proceed Anesthesia type and monitoring: general GIVS and standard monitoring Results Review: All pre-operative results and documents have been reviewed as part of the pre- operative evaluation. Informed Consent: The patient's anesthetic plan and its attendant risks and benefits were discussed with the patient/family/POA. Questions were solicited and answers provided to the satisfaction of the patient/family/POA.
[2022-12-29 08:55] VITALS: BP 117/86; PULSE 67; RESP 18; TEMP 36.1; O2SAT 96
[2022-12-29] MEDS: LACTATED RINGERS 1,000 ML 150 ML IV CONT (09:06)
--- NOTE | 2022-12-29 09:53 | PM.HPGS ---
History of Present Illness History of Present Illness Consent: Risks, benefits, and alternatives have been discussed and questions answered. Patient agrees to proceed with procedure. Chief complaint: unspecified duodenal ulcer Narrative: Micheal Espinoza is a 82 year old male with gib 10/09, found to have non-bleeding DU and erosive gastritis, denies any overt gib, not longer using ppi Review of Systems Constitutional: Constitutional: Denies headache(s) and Denies weakness Eyes: Eyes: Denies blurry vision ENT: Reports Normal hearing present, Denies headache(s) and Denies neck pain Cardiovascular: Cardiovascular: Denies chest pain and Denies dyspnea Respiratory: Respiratory: Denies dyspnea Gastrointestinal: Gastrointestinal: Reports no additional gastrointestinal complaints Genitourinary: Genitourinary: Denies dysuria Musculoskeletal: Musculoskeletal: Denies neck pain Integumentary/Breasts: Skin/Breast: Denies dry skin Neurologic: Reports Normal hearing present, Denies headache(s) and Denies weakness Psychiatric: Psychiatric: Denies anxiety Endocrine: Endocrine: Denies change in body appearance Hematologic/Lymphatic: Hematologic/Lymphatic: Denies easy bleeding Allergic/Immunologic: Allergic/Immunologic: Denies urticaria PMFSH Past Medical History Medical History (Updated 09/28/22 @ 01:16 by Virginia Lau PA-C) Acute blood loss anemia Adenomatous colon polyp Deep venous thrombosis Duodenal ulcer disease Gastroesophageal reflux disease Hyperlipidemia Iron deficiency anemia Lightheadedness Melena Prostate cancer Surgical History Surgical History (Updated 09/27/22 @ 13:24 by Virginia Lau PA-C) History of cataract extraction with lens replacement History of cholecystectomy (2012) History of colonoscopy with polypectomy History of ear surgery History of esophagogastroduodenoscopy History of tonsillectomy Family History Family History Other Carcinoma of colon Family history of malignant neoplasm of thyroid Social History Social History (Updated 09/29/22 @ 12:56 by Virginia Lau PA-C) Social History: Surrogate medical decision maker: Sven Espinoza, son. Code status: Full code. Smoking packs per day: 1 Smoking cigarettes per day: 20.0 Years smoked: 5 Smoking pack-years: 5.00 Smoking status: Former smoker Tobacco type: cigarettes Second hand tobacco smoke exposure: No Smoking end date: 04/19/1961 Alcohol intake: never Substance use: never Substance use type: does not use Lack of Transportation: No Lack of Food: Never True Current Housing: I Have Housing Concerned About Future Housing: No Difficulty Paying Gas/Electric Bills: No Difficulty Paying for Meds: No Currently Unemployed: No Education: Bachelor's Degree Difficulty w/ Childcare or Family Care: No Living arrangements: with family Spiritual care concerns: No Meds Home Medications and Allergies Home Medications Medication Instructions Recorded Confirmed Type pantoprazole 40 mg tablet,delayed 40 mg PO Q12HR #60 tabs 09/28/22 12/14/22 Rx release Allergies Allergy/AdvReac Type Severity Reaction Status Date / Time No Known Allergies Allergy Unknown Verified 12/29/22 08:54 Vital Signs Vital Signs - 24 hr 12/29/22 08:55 Temperature 97 F L Pulse Rate 67 Respiratory Rate 18 Blood Pressure 117/86 Pulse Oximetry 96 Oxygen Delivery Room Air Exam Const: General: comfortable and no acute distress HENMT: Face/Nose/Sinus: Normal nares present Eyes: General: appearance normal, both eyes and all related structures Neck: Neck: no JVD Resp: Auscultation: clear to auscultation bilaterally Cardio: Rate: regular rate Rhythm: regular rhythm GI: Inspection: non-distended GI Palp: Yes Soft to palpation Skin: General skin exam: normal color Neuro: General: gait normal Speech: nor
[2022-12-29 10:16] VITALS: BP 132/81; PULSE 62; RESP 18; O2SAT 96
[2022-12-29 10:25] VITALS: BP 129/72; PULSE 62; RESP 18; O2SAT 96
[2022-12-29 10:35] VITALS: BP 130/76; PULSE 64; RESP 18; O2SAT 96
== END 2022-12-29 10:50 | disposition home or self-care (01) ==
PROVIDERS: PCP Internal Medicine; Visit Provider Internal Medicine Gastroenterology
PROC: 0DJ08ZZ Inspection of Upper Intestinal Tract, Via Natural or Artificial Opening Endoscopic (ICD-10-PCS; CPT 43235; principal; 2022-12-29 10:00)
DX: Z09 Encounter for follow-up examination after completed treatment for conditions other than malignant neoplasm (principal); K29.50 Unspecified chronic gastritis without bleeding; B96.81 Helicobacter pylori [H. pylori] as the cause of diseases classified elsewhere; Z87.11 Personal history of peptic ulcer disease; K21.9 Gastro-esophageal reflux disease without esophagitis; Z86.718 Personal history of other venous thrombosis and embolism; Z85.46 Personal history of malignant neoplasm of prostate; Z87.891 Personal history of nicotine dependence
CPT/HCPCS: 43239; 88305; J2704; J7120

== ENCOUNTER 2023-04-16 12:54 | Outpatient (CLI) | payer MEDICARE, SELFPAY ==
[2023-04-21 21:01] LABS: H pylori Ag Stool Not Detected (Not Detected)
== END 2023-04-16 12:55 | disposition home or self-care (01) ==
LOC: ANHLAB 12:56
PROVIDERS: PCP Internal Medicine; Visit Provider Internal Medicine Gastroenterology
DX: K29.70 Gastritis, unspecified, without bleeding (principal); B96.81 Helicobacter pylori [H. pylori] as the cause of diseases classified elsewhere
CPT/HCPCS: 87338

== ENCOUNTER 2023-08-04 09:41 | Outpatient (CLI) | payer MEDICARE, SELFPAY ==
--- NOTE | 2023-08-04 11:00 | NEURO_ITS ---
Impression: # Complains of numbness of feet. Not diabetic. # Minimal responses obtained in right lower extremity even with higher stimulation. # Otherwise no motor or sensory responses. # Clinical correlation recommended; Suggestive of severe neuropathy. Nerve Conduction Studies Anti Sensory Summary Table Stim Site NR Peak (ms) P-T Amp (?V) Site1 Site2 Delta-P (ms) Dist (cm) Carlos (m/s) Left Sup Fibular Anti Sensory (Ant Lat Mall) NO RESPONSE 14 cm NR 14 cm Ant Lat Mall 16.0 Right Sup Fibular Anti Sensory (Ant Lat Mall) NO RESPONSE 14 cm NR 14 cm Ant Lat Mall 16.0 Left Sural Anti Sensory (Lat Mall) NO RESPONSE Calf NR Calf Lat Mall 16.0 Right Sural Anti Sensory (Lat Mall) NO RESPONSE Calf NR Calf Lat Mall 16.0 Motor Summary Table Stim Site NR Onset (ms) O-P Amp (mV) Site1 Site2 Delta-0 (ms) Dist (cm) Carlos (m/s) Left Peroneal Motor (Vastus Med) NO RESPONSE Ankle NR Popit Ankle 0.0 Popit NR Right Peroneal Motor (Vastus Med) Ankle 3.8 0.4 Popit Ankle 12.6 43.0 34 Popit 16.4 0.5 Left Tibial Motor (Abd Amin Brev) NO RESPONSE Ankle NR Knee Ankle 0.0 Knee NR Right Tibial Motor (Abd Amin Brev) NO RESPONSE Ankle NR Knee Ankle 0.0 Knee NR F Wave Studies NR F-Lat (ms) L-R F-Lat (ms) Left Peroneal (Mrkrs) (EDB) NO RESPONSE NR Right Peroneal (Mrkrs) (EDB) 79.53 Left Tibial (Mrkrs) (Abd Hallucis) NO RESPONSE NR Right Tibial (Mrkrs) (Abd Hallucis) DISPERSED RESPONSE NR EMG Side Muscle Nerve Root Ins Act Fibs Amp Dur Recrt Comment Right AntTibialis Dp Br Fibular L4-5 Nml Nml Nml >12ms +2 Right Gastroc Tibial S1-2 Nml Nml Nml >12ms +2 Right Fibularis Long Sup Br Fibular L5-S1 Nml Nml Nml >12ms +2 Right Flex Dig Long Tibial L5-S2 Nml Nml Nml >12ms +2 Right Ext Dig Brev Dp Br Fibular L5, S1 Nml Nml Nml >12ms +2 Left AntTibialis Dp Br Fibular L4-5 Nml Nml Nml >12ms +2 Left Gastroc Tibial S1-2 Nml Nml Nml >12ms +2 Left Fibularis Long Sup Br Fibular L5-S1 Nml Nml Nml >12ms +2 Left Flex Dig Long Tibial L5-S2 Nml Nml Nml >12ms +2 Left Ext Dig Brev Dp Br Fibular L5, S1 Nml Nml Nml >12ms +2 MTDD
== END 2023-08-04 09:42 | disposition home or self-care (01) ==
PROVIDERS: PCP Internal Medicine; Visit Provider Physician Assistant
DX: R20.0 Anesthesia of skin (principal); R20.2 Paresthesia of skin; G62.9 Polyneuropathy, unspecified
CPT/HCPCS: 95886; 95910

== ENCOUNTER 2023-09-09 17:51 | Emergency (ER) | payer MEDICARE, SELFPAY ==
--- NOTE | ~2023-09-09 | CT_ITS ---
EXAMINATION: CT brain wo con DATE: 09/09/2023 20:08 INDICATION: Altered mental status TECHNIQUE: Computed tomography (CT) of the head was performed without intravenous contrast. Sagittal and coronal reconstructions were performed. The mA was adjusted according to patient size. Iterative reconstruction technique was employed. The dose-length product was 681.00 mGy-cm. COMPARISON: head CT dated 02/02/2019 FINDINGS: No acute intracranial hemorrhage, acute infarction or abnormal extra axial fluid collection. There is minimal scattered white matter hypoattenuation consistent with chronic small vessel ischemic disease . Symmetric prominence of the sulci consistent with mild age-appropriate diffuse cerebral volume loss . Ventricles are normal and symmetric. No mass/mass effect. Changes of right intraocular lens replace ment. The orbits, paranasal sinuses and mastoid air cells are normal. IMPRESSION: 1. Normal aging brain. No acute intracranial process. Reviewed, dictated and finalized at location A.
--- NOTE | ~2023-09-09 | XR_ITS ---
EXAMINATION: XR chest 1V DATE: 09/09/2023 20:11 INDICATION: Altered mental status TECHNIQUE: frontal view of the chest was obtained. COMPARISON: Chest radiograph dated 06/07/2020 FINDINGS: Mild increased interstitial pattern in the bilateral infrahilar regions which could represent mild pu lmonary edema or less likely pneumonia. No pleural effusion or pneumothorax. The cardiomediastinal si lhouette is normal. Unchanged small linear metallic density projecting posterior to the right hilum. IMPRESSION: 1. Mild infrahilar opacities which could represent mild pulmonary edema or pneumonia. Reviewed, dictated and finalized at location A. IMPRESSION: 1. Mild infrahilar opacities which could represent mild pulmonary edema or pneu monia.
[2023-09-09 17:53] VITALS: BP 117/68; PULSE 84; RESP 18; TEMP 36.3; O2SAT 97
[2023-09-09 19:26] VITALS: PULSE 62
--- NOTE | 2023-09-09 19:37 | ECG_ITS ---
SEE SCANNED COPY FOR CONFIRMED REPORT MTDD
[2023-09-09] MEDS: SODIUM CHLORIDE 0.9% IV 1,000 ML 999 ML IV CONT ×2 (19:50→20:51)
[2023-09-09 19:56] LABS: Basophils Absolute Auto 0.1 K/mm3 (0.0-0.1); Basophils Percent Auto 0.7 % (0.2-1.2); Eosinophils Absolute Auto 0.1 K/mm3 (0-0.3); Eosinophils Percent Auto 1.7 % (0-4.4); Hematocrit 44.2 % (42.0-52.0); Immature Granulocyte Absolute 0.02 K/mm3 (0.00-0.031); Immature Granulocyte Percent A 0.3 % (0-0.5); Lymphocytes Absolute Auto 1.22 K/mm3 (0.9-3.2); Lymphocytes Percent Auto 17.4 % (18.3-44.2); Mean Corpuscular HGB Conc 33.9 g/dl (32-36); Mean Corpuscular Hemoglobin 32.4 pg (26-34); Mean Corpuscular Volume 95.5 fl (80-100); Mean Platelet Volume 11.8 fl (7.4-10.4); Monocytes Absolute Auto 0.6 K/mm3 (0.1-0.6); Monocytes Percent Auto 8.4 % (2.6-8.5); Neutrophils Percent Auto 71.5 % (45.5-73.1); Platelet Count Result 164 k/mm3 (150-375); Red Blood Count 4.63 M/mm3 (4.6-6.20); Red Cell Distribution Width 13.7 % (11.5-14.5)
[2023-09-09 20:07] LABS: Acetaminophen < 10 ug/mL (10-30); Ethanol < 10 mg/dL (<10); Salicylate < 1.0 mg/dL (2-20)
[2023-09-09 20:09] LABS: Lactic Acid Reflex 1.1 mmol/L (0.7-2.0)
[2023-09-09 20:22] LABS: Alanine Aminotransferase 25 U/L (6-50); Albumin Level 3.9 g/dL (3.5-5.1); Alkaline Phosphatase 44 U/L (38-126); Anion Gap 6 mmol/L (4-12); Aspartate Amino Transferase 27 U/L (17-59); Bilirubin,Total 1.3 mg/dL (0.2-1.3); Blood Urea Nitrogen 26 mg/dL (9-20); Calcium 10.1 mg/dL (8.4-10.2); Carbon Dioxide 24 mmol/L (22-30); Chloride 109 mmol/L (98-107); Creatine Kinase 48 U/L (55-170); Estimated CRCL calculation 44 ml/min; Estimated Glomerular Filt Rate 58; Glucose 102 mg/dL (65-110); Lipase 67 U/L (23-300); Magnesium 2.1 mg/dL (1.6-2.3); Phosphorus 2.9 mg/dL (2.5-4.5); Potassium 3.7 mmol/L (3.4-5.0); Sodium 139 mmol/L (137-145)
[2023-09-09 20:32] LABS: Influenza A QL RT-PCR Negative (Negative); Influenza B QL RT-PCR Negative (Negative); RSV RNA, RT-PCR Negative (Negative); SARS-CoV-2 RNA PCR Negative (Negative)
--- NOTE | 2023-09-09 20:41 | ED.GENADULT ---
HPI - General Adult General Chief complaint: Weakness Stated complaint: fatigue Time Seen by Provider: 09/09/23 19:00 History of Present Illness HPI narrative: this is an 83-year-old male sent to the ED for depression/ Fatigue. Patient's that notices that over the last several months he has had decreased energy. He has stops speaking to her as much. She frequently finds him staring off into space. He has not voice any physical complaints and she has not noticed anything wrong besides his behavior. Patient himself denies any complaints at this time. He is suicidal homicidal ideation. Denies visual or auditory hallucinations. No use of drugs or alcohol. Patient does has a history of severe depression and has presented like this in the past. Related Data Home Medications Medication Instructions Recorded Confirmed No Home Medications 04/14/23 06/16/23 Allergies Allergy/AdvReac Type Severity Reaction Status Date / Time No Known Allergies Allergy Unknown Verified 08/31/23 07:39 [facility] Past Medical History Medical History Acute blood loss anemia Adenomatous colon polyp COVID-19 Deep venous thrombosis Duodenal ulcer disease Gastroesophageal reflux disease GI bleed Helicobacter positive gastritis Hx of adenomatous colonic polyps Hx of deep venous thrombosis Hx of duodenal ulcer Hx of peptic ulcer Hx of prostatic malignancy Hyperlipidemia Iron deficiency anemia Lightheadedness Melena Prostate cancer Surgical History Surgical History History of cataract extraction with lens replacement History of cholecystectomy (2012) History of colonoscopy with polypectomy History of ear surgery History of esophagogastroduodenoscopy History of tonsillectomy Family History Family History Other Carcinoma of colon Family history of malignant neoplasm of thyroid Social History Social History Social History: Surrogate medical decision maker: Sven Espinoza, son. Code status: Full code. Smoking packs per day: 1 Smoking cigarettes per day: 20.0 Years smoked: 5 Smoking pack-years: 5.00 Smoking status: Former smoker Tobacco type: cigarettes Second hand tobacco smoke exposure: No Smoking end date: 04/19/1961 Alcohol intake: never Substance use: never Substance use type: does not use Lack of Transportation: No Lack of Food: Never True Current Housing: I Have Housing Concerned About Future Housing: No Difficulty Paying Gas/Electric Bills: No Difficulty Paying for Meds: No Currently Unemployed: No Education: Bachelor's Degree Difficulty w/ Childcare or Family Care: No Living arrangements: with family Spiritual care concerns: No Exam Narrative: APPEARANCE: No apparent distress. A&O 3, Head: atraumatic. EYES: EOMI, NOSE: Atraumatic NECK: Trachea midline RESPIRATORY: No increased rate of breathing CTAB CARDIOVASCULAR: RRR, ABDOMINAL: Non-distended soft nontender MUSCULOSKELETAl: No obvious deformities NEURO: Alert. Cranial nerves 2-12 grossly intact. Sensation light touch, motor function cerebellar function intact for 4 extremities. Gait exam was normal. SKIN:: Warm, dry. Normal color PSYCHIATRIC: depressed affect Course Vital Signs Vital signs: Vital Signs Temperature 97.3 F L 09/09/23 17:53 Pulse Rate 84 09/09/23 17:53 Respiratory Rate 18 09/09/23 17:53 Blood Pressure 117/68 09/09/23 17:53 Pulse Oximetry 97 09/09/23 17:53 Temperature 97.3 F L 09/09/23 17:53 Pulse Rate 61 09/09/23 23:45 Respiratory Rate 18 09/09/23 23:45 Blood Pressure 137/62 09/09/23 23:45 Pulse Oximetry 100 09/09/23 23:45 Medical Decision Making MDM Narrative Medical decision making narrative: -Course: 83-year-old wit
[2023-09-09 21:00] VITALS: BP 133/75; PULSE 56; RESP 18; O2SAT 100
[2023-09-09 21:45] LABS: Appearance Urine Clear (Clear); Bilirubin Urine Negative (Negative); Blood Urine Negative (Negative); Color Urine Dark Yellow (Yellow); Glucose Urine UA Negative (Negative); Ketones Urine Trace mg/dL (Negative); Leukocyte Esterase Ur Negative LEU/UL (Negative); Nitrate Urine Negative (Negative); Protein Urine Negative (Negative); Specific Grav Ur 1.027 (1.001-1.035); pH Urine 5.5 (5.0-9.0)
[2023-09-09 21:53] LABS: Add Urine Microscopic? NO
[2023-09-09 22:00] LABS: Amphetamine Screen Urine Negative (Negative); Barbiturate Screen Urine Negative (Negative); Benzodiazepines Screen Urine Negative (Negative); Cannabinoid Screen Urine Negative (Negative); Cocaine Screen Urine Negative (Negative); Methadone Screen Urine Negative (Negative); Opiate Screen Urine Negative (Negative); Phencyclidine Screen Urine Negative (Negative)
[2023-09-09 22:34] VITALS: BP 140/77; PULSE 57; RESP 18; O2SAT 100
[2023-09-09 23:45] VITALS: BP 137/62; PULSE 61; RESP 18; O2SAT 100
== END 2023-09-10 00:17 | disposition home or self-care (01) ==
PROVIDERS: Emergency Provider Emergency Medicine; PCP Internal Medicine
DX: F32.A Depression, unspecified (principal); Z20.822 Contact with and (suspected) exposure to COVID-19; E78.5 Hyperlipidemia, unspecified; D50.9 Iron deficiency anemia, unspecified; K21.9 Gastro-esophageal reflux disease without esophagitis; Z86.010 Personal history of colon polyps; Z87.11 Personal history of peptic ulcer disease; Z86.718 Personal history of other venous thrombosis and embolism; Z85.46 Personal history of malignant neoplasm of prostate; Z87.891 Personal history of nicotine dependence; Z86.16 Personal history of COVID-19; Z96.1 Presence of intraocular lens; Z98.49 Cataract extraction status, unspecified eye; Z90.49 Acquired absence of other specified parts of digestive tract; I44.4 Left anterior fascicular block; R94.31 Abnormal electrocardiogram [ECG] [EKG]; R91.8 Other nonspecific abnormal finding of lung field
CPT/HCPCS: 36415; 70450; 71045; 80053; 80307; 81003; 82550; 83605; 83690; 83735; 84100; 85025; 87637; 93005; 96360; 96361; 99284; J7030

== ENCOUNTER 2023-11-04 16:53 | Inpatient (IN) | payer MEDICARE, SELFPAY ==
[2023-11-04] VITALS (29 sets, daily range): BP systolic 70–147; BP diastolic 57–93; PULSE 55–76; RESP 11–28; TEMP 36.6; O2SAT 97–100
--- NOTE | ~2023-11-04 | MR_ITS ---
EXAMINATION: MR brain/brain stem wo/w con DATE: 11/17/2023 14:35 INDICATION: Dizziness. Weakness. TECHNIQUE: Magnetic resonance imaging (MRI) of the brain and brainstem was performed without and with 13 mL MultiHance intravenous contrast. COMPARISON: Brain MRI 11/07/2023, head CT 11/05/2023 FINDINGS: There are scattered areas of nonspecific increased T2-weighted signal intensity in the cere bral white matter and tanner, which is within normal limits for the patient's age. There is no intracra nial hemorrhage or acute infarction. There is a 12 mm enhancing extra-axial mass in the right cerebel lopontine angle, consistent with a meningioma. The ventricles are normal in size. There are likely ch anges of right ocular lens replacement surgery. There is mild mucosal thickening in the ethmoid sinus es. The mastoid air cells are normal. IMPRESSION: 1. 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 Reviewed, dictated and finalized at location A.
--- NOTE | ~2023-11-04 | XR_ITS ---
XR chest 2V Ordering provider: Celso Huerta MD History: 83 years Male with . near syncope, WEAKNESS . Comparison: September 09, 2023 FINDINGS: MEDIASTINUM: The cardiac silhouette is not enlarged. LUNGS: No infiltrates, effusions or pneumothorax. OTHER: No free air under the diaphragm. Degenerative changes of the spine. Loss of volume of the midt horacic area of multiple vertebrae most likely chronic. IMPRESSION: No acute cardiopulmonary pathology. Reviewed, dictated and finalized at location A.
--- NOTE | ~2023-11-04 | CT_ITS ---
Non-contrast Head CT History: Dizziness COMPARISON: 09/09/2023 Technique: Axial non-contrast imaging of the brain was performed. Dose reduction technique was used on this scan by utilizing automated exposure control and iterative reconstruction technique. The dose -length product (DLP) was 681.00 mGy-cm. Findings: There is no evidence of intracranial hemorrhage, mass lesion, or acute infarct. Brain par enchyma appears normal. The ventricles and subarachnoid spaces are normal in size. The calvarium ap pears normal. The visualized paranasal sinuses and mastoid air cells are clear. Impression: No significant abnormality seen. Reviewed, dictated and finalized at location . Impression: No significant abnormality seen.
--- NOTE | ~2023-11-04 | MR_ITS ---
EXAMINATION: MR brain/brain stem wo con DATE: 11/07/2023 11:25 INDICATION: Unresponsiveness and ataxia TECHNIQUE: Magnetic resonance imaging (MRI) of the brain and brainstem was performed without intraven ous contrast. Sequences included sagittal and axial T1-weighted SE, axial diffusion-weighted FS SE, a xial 3D SWAN, axial T2-weighted FLAIR, and axial T2-weighted FSE. Apparent diffusion coefficient (ADC ) maps were created. COMPARISON: None. FINDINGS: There are no areas of restricted diffusion to suggest acute infarction. No intracranial hemorrhage. 1 2 x 6 mm lenticular extra-axial mass along the cephalad margin of the right petrous apex. There is hinkle ggestion of dyspnea and present hepatitis CT dated 01/29/2019 however assessment is somewhat limited by streak artifact on the CT images. There are scattered areas of nonspecific increased T2-weighted s ignal intensity in the cerebral white matter, predominantly involving the deep and periventricular wh ite matter. There are no intraparenchymal signal abnormalities seen on the other pulse sequences. The ventricles are symmetric and normal in size. There are no abnormal extra-axial fluid collections. Fl ow voids are seen in the cerebral arteries on the T2-weighted sequences consistent with their expecte d patency. Changes of right intraocular lens replacement. Mild mucosal thickening the bilateral ethmo id sinuses. Minimal right mastoid effusion. IMPRESSION: 1. No acute intracranial process. 2. 12 x 6 mm lenticular extra-axial mass along the right petrous apex, potentially chronic and statis tically most likely to represent a meningioma. Correlate with any prior outside imaging and could con [employer] obtaining contrast-enhanced MRI to assess for dural continuity confirmed presence of any additi onal lesions. 3. Mild scattered nonspecific white matter T2 hyperintensity which is within normal limits for age an d likely sequela of chronic small vessel ischemic disease. Reviewed, dictated and finalized at location A. IMPRESSION: 1. No acute intracranial process. 2. 12 x 6 mm lenticular extra-axial mass along the right petrous apex, potentia lly chronic and statistically most likely to represent a meningioma. Correlate with any prior outside imaging and could consider obtaining contrast-enhanced M RI to assess for dural continuity confirmed presence of any additional lesions. 3. Mild scattered nonspecific white matter T2 hyperintensity which is within no rmal limits for age and likely sequela of chronic small vessel ischemic disease .
--- NOTE | ~2023-11-04 | XR_ITS ---
EXAMINATION: XR chest 1V portable DATE: 11/12/2023 13:57 INDICATION: Shortness of breath TECHNIQUE: frontal view of the chest was obtained. COMPARISON: Chest radiograph dated 11/04/2023 FINDINGS: Opacities at the bilateral lung bases, left greater than right which includes a band of discoid atele ctasis. Skinfold projects of the right mid to upper lung. No pleural effusion or pneumothorax. The ca rdiomediastinal silhouette is normal. Old healed left humeral neck fracture deformity. IMPRESSION: 1. Bibasilar opacities, left greater than right, due at least in part to atelectasis although could n ot exclude superimposed pneumonia. Reviewed, dictated and finalized at location A. IMPRESSION: 1. Bibasilar opacities, left greater than right, due at least in part to atelec tasis although could not exclude superimposed pneumonia.
--- NOTE | ~2023-11-04 | US_ITS ---
EXAMINATION: US carotid duplex BI DATE: 11/15/2023 15:41 INDICATION: Ataxia. Dizziness. TECHNIQUE: Grayscale, color Doppler, and pulsed Doppler images of the cervical carotid arteries were obtained. The degree of vessel stenosis is placed in one of the following categories: normal, <50%, 5 0-69%, >=70% but less than near-occlusion, near-occlusion, or total occlusion. Note that percent sten osis relative to normal distal artery lumen diameter is indirectly measured from velocity measurement s as described by Herbert, et al. Radiology 2003; 229:340-346. COMPARISON: None. FINDINGS: RIGHT: The right common carotid artery (CCA) peak systolic velocity (PSV) is 60 cm/s. The right internal car otid artery (ICA) PSV is 77 cm/s. The right ICA end-diastolic velocity (EDV) is 17 cm/s. The right IC A/CCA PSV ratio is 1.3. Grayscale and color Doppler images yield an estimate of <50% diameter reducti on from plaque in the ICA. There is antegrade flow in the right vertebral artery. LEFT: The left CCA PSV is 88 cm/s. The left ICA PSV is 97 cm/s. The left ICA EDV is 13 cm/s. The left ICA/C CA PSV ratio is 1.2. Grayscale and color Doppler images yield an estimate of <50% diameter reduction from plaque in the ICA. There is antegrade flow in the left vertebral artery. IMPRESSION: 1. <50% stenosis in the right internal carotid artery. 2. <50% stenosis in the left internal carotid artery. Reviewed, dictated and finalized at location A.
--- NOTE | 2023-11-04 16:55 | ECG_ITS ---
Test Date: 2023-11-04 17:01:21 Measurements Intervals [place] Rate: 72 P: -60 ID: [id number] QRS: -66 QRSD: 126 T: 82 QT: 397 QTc: 436 Interpretive Statements SINUS RHYTHM RSR' IN V1 OR V2, RIGHT VCD OR RVH LEFT ANTERIOR FASCICULAR BLOCK LEFT VENTRICULAR HYPERTROPHY AND ST-T CHANGE BASELINE ARTIFACT- I, II, AVR, V2 ABNORMAL ECG No previous ECG available for comparison Electronically Signed On 11-04-2023 18:51:37 CDT by Campbell Palacio D.O.
[2023-11-04 18:00] LABS: Basophils Percent Auto 0.6 % (0.2-1.2); Eosinophils Absolute Auto 0.1 K/mm3 (0-0.3); Eosinophils Percent Auto 1.7 % (0-4.4); Hemoglobin 15.2 g/dL (14.0-18.0); Immature Granulocyte Absolute 0.02 K/mm3 (0.00-0.031); Immature Granulocyte Percent A 0.3 % (0-0.5); Lymphocytes Percent Auto 21.5 % (18.3-44.2); Mean Corpuscular HGB Conc 34.5 g/dl (32-36); Mean Corpuscular Hemoglobin 32.5 pg (26-34); Mean Corpuscular Volume 94.2 fl (80-100); Mean Platelet Volume 11.2 fl (7.4-10.4); Monocytes Absolute Auto 0.5 K/mm3 (0.1-0.6); Monocytes Percent Auto 6.9 % (2.6-8.5); Neutrophils Absolute Auto 4.5 K/mm3 (1.3-6.7); Platelet Count Result 206 k/mm3 (150-375); Red Blood Count 4.67 M/mm3 (4.6-6.20); White Blood Count 6.5 K/mm3 (4.5-10.0)
[2023-11-04 18:09] LABS: Alanine Aminotransferase 13 U/L (6-50); Alkaline Phosphatase 40 U/L (38-126); Anion Gap 10 mmol/L (4-12); Aspartate Amino Transferase 20 U/L (17-59); Bilirubin,Total 1.1 mg/dL (0.2-1.3); Blood Urea Nitrogen 21 mg/dL (9-20); Calcium 9.8 mg/dL (8.4-10.2); Carbon Dioxide 23 mmol/L (22-30); Chloride 102 mmol/L (98-107); Estimated CRCL calculation 47 ml/min; Estimated Glomerular Filt Rate > 60; Glucose 132 mg/dL (65-110); Sodium 135 mmol/L (137-145)
[2023-11-04] MEDS: SODIUM CHLORIDE 0.9% IV 1,000 ML 999 ML IV CONT ×2 (18:48→19:35)
--- NOTE | 2023-11-04 19:26 | ED.WEAKNESS ---
HPI - Weakness General Chief complaint: Weakness Stated complaint: dizzy, near syncope Time Seen by Provider: 11/04/23 19:06 History of Present Illness HPI Narrative: 83-year-old male with history of hyperlipidemia, GERD presents to the emergency department for weakness and presyncope for the past 2 days. Patient's is at bedside to assist with history. States yesterday the patient was walking to his recliner when he became very lightheaded and fell to the ground. States again today he was ambulatory when he felt lightheaded and again fell to the ground. He also notes a few days ago he was outside walking from his car to his front door when he became lightheaded and again fell to the ground. He states he did not hit his head or lose consciousness each time. Denies chest pain or shortness of breath or palpitations prior to every episode of lightheadedness and fall. He denies injuries or trauma from the falls. He denies fever, N/V/D, abdominal pain, chest pain, shortness of breath, cough or congestion, dysuria or hematuria. Denies melena or hematochezia. He is not anticoagulated. States he feels fine while sitting in the exam bed now but feels lightheaded when he ambulates. Per chart review patient was seen in our emergency department on 09/27/2022 for similar symptoms. He had a positive Hemoccult test in the ED and was admitted. EGD at that time showed moderate ulcerative gastritis without mucosal bleeding and 81 ulcer. Patient was started on Protonix. Related Data Home Medications Medication Instructions Recorded Confirmed No Home Medications 04/14/23 11/05/23 Allergies Allergy/AdvReac Type Severity Reaction Status Date / Time No Known Allergies Allergy Unknown Verified 11/04/23 16:54 Review of Systems Review of Systems: All systems reviewed & are unremarkable except as noted in HPI and below PMFSH Past Medical History Medical History Acute blood loss anemia Adenomatous colon polyp COVID-19 Deep venous thrombosis Duodenal ulcer disease Gastroesophageal reflux disease GI bleed Helicobacter positive gastritis Hx of adenomatous colonic polyps Hx of deep venous thrombosis Hx of duodenal ulcer Hx of peptic ulcer Hx of prostatic malignancy Hyperlipidemia Iron deficiency anemia Lightheadedness Melena Prostate cancer Surgical History Surgical History History of cataract extraction with lens replacement History of cholecystectomy (2012) History of colonoscopy with polypectomy History of ear surgery History of esophagogastroduodenoscopy History of tonsillectomy Family History Family History Other Carcinoma of colon Family history of malignant neoplasm of thyroid Social History Social History Social History: Surrogate medical decision maker: Sven Espinoza, son. Code status: Full code. Caffeine-soda Smoking packs per day: 1 Smoking cigarettes per day: 20.0 Years smoked: 5 Smoking pack-years: 5.00 Smoking status: Former smoker Tobacco type: cigarettes Second hand tobacco smoke exposure: No Smoking end date: 04/19/1961 Additional smoking assessment comments: smoked when was a teenager Alcohol intake: never Substance use: never Substance use type: does not use Do You Feel Safe in your Home?: Yes Lack of Transportation: No Lack of Food: Never True Current Housing: I Have Housing Concerned About Future Housing: No Difficulty Paying Gas/Electric Bills: No Difficulty Paying for Meds: No Currently Unemployed: No Education: Bachelor's Degree Difficulty w/ Childcare or Family Care: No Living arrangements: with family Spiritual care concerns: No Exam Narrative: GENERAL: Well-appearing, well-nourished, and in no acute di
[2023-11-04 19:42] LABS: Prothrombin Time 13.9 Seconds (11.1-14.7)
[2023-11-04 19:43] LABS: Partial Thromboplastin Time 26.8 Seconds (22.3-36.8)
[2023-11-04 19:51] LABS: NT Pro B Type Natriuretic Pept 187 pg/mL (19.9-100); Troponin I < 0.012 ng/mL (0.000-0.034)
[2023-11-04 19:53] LABS: Appearance Urine Cloudy (Clear); Bacteria Urine None Seen /hpf; Bilirubin Urine Negative (Negative); Blood Urine Negative (Negative); Color Urine Yellow (Yellow); Glucose Urine UA Negative (Negative); Ketones Urine Trace mg/dL (Negative); Leukocyte Esterase Ur Negative LEU/UL (Negative); Nitrate Urine Negative (Negative); Non Pathogenic Casts 0-2; Protein Urine Negative (Negative); RBC Urine 0-2 /hpf (0-2); Specific Grav Ur 1.023 (1.001-1.035); Squamous Epithelial Cell Urine None Seen /hpf (Few); WBC Urine 0-5 /hpf (0-3); pH Urine 5.5 (5.0-9.0)
[2023-11-04 19:54] LABS: Add Urine Microscopic? YES
--- NOTE | 2023-11-04 20:37 | PC.NURSE ---
ambulated pt at this time. pt walked good, although had some unsteadiness at some times
[2023-11-04] MEDS: SODIUM CHLORIDE 0.9% IV 1,000 ML 100 ML IV CONT (22:08)
--- NOTE | 2023-11-04 23:08 | PC.NURSE ---
BSSR received from NATHALY Britton. Pt resting comfortably in bed, call light within reach.
--- NOTE | 2023-11-04 23:57 | ADMGEN ---
This patient, Micheal Espinoza, was admitted to Medical Room 260-01. Patient/family oriented to hospital policies and general routines including ID bracelet, bed and alarms, visiting hours, pain management, procedures, bathroom and other care routines, personal items, smoking policy, room service/diet, and visiting hours. Information on how to activate the Rapid Response Team has been discussed. Patient/Family are encouraged to report perceived risks to care and to ask questions if they do not understand what they are told or what they should do.
[2023-11-05] VITALS (16 sets, daily range): BP systolic 104–154; BP diastolic 68–85; PULSE 56–100; RESP 18–20; TEMP 36.4–36.6; O2SAT 99–100; BMI 21.1
[2023-11-05] MEDS: SODIUM CHLORIDE 0.9% IV 1,000 ML 100 ML IV CONT ×3 (00:21→21:47)
--- NOTE | 2023-11-05 17:16 | PM.IMHP ---
H&P: HPI History of Present Illness Date/Time: 11/05/23 17:16 Chief Complaint: Lightheadedness and fall at home Narrative: Patient is a pleasant 83-year-old male with a PMH GERD, hyperlipidemia, neuropathy, gastritis who presents to [facility] for weakness and presyncope for 2 days prior to admission. is at bedside on presentation to assist with history. The patient was walking to his recliner and felt lightheaded and fell to the ground. This happened again sometime later. Denied loss of consciousness, seizure activity, aura, blunt head trauma. [facility] revealed blood pressure 93/61 and positive orthostatics, blood pressure when standing 70/57. Other workup was widely unremarkable. The patient's orthostatic hypotension improved with 2 L of fluids. Attempted to ambulate the patient in the ER but he had an unsteady gait therefore patient admitted on 11/05/2023 for unsteadiness, neuropathy, syncope, orthostatic hypotension. Upon admission nurse noted patient to have word-finding difficulty. CT scan head without contrast did not demonstrate acute abnormalities. Review of Systems Review of Systems: All systems reviewed & are unremarkable except as noted in HPI and below (Subjective) [facility] Past Medical History Medical History Acute blood loss anemia Adenomatous colon polyp COVID-19 Deep venous thrombosis Duodenal ulcer disease Gastroesophageal reflux disease GI bleed Helicobacter positive gastritis Hx of adenomatous colonic polyps Hx of deep venous thrombosis Hx of duodenal ulcer Hx of peptic ulcer Hx of prostatic malignancy Hyperlipidemia Iron deficiency anemia Lightheadedness Melena Prostate cancer Surgical History Surgical History History of cataract extraction with lens replacement History of cholecystectomy (2012) History of colonoscopy with polypectomy History of ear surgery History of esophagogastroduodenoscopy History of tonsillectomy Family History Family History Other Carcinoma of colon Family history of malignant neoplasm of thyroid Social History Social History Social History: Surrogate medical decision maker: Sven Espinoza, son. Code status: Full code. Caffeine-soda Smoking packs per day: 1 Smoking cigarettes per day: 20.0 Years smoked: 5 Smoking pack-years: 5.00 Smoking status: Former smoker Tobacco type: cigarettes Second hand tobacco smoke exposure: No Smoking end date: 04/19/1961 Additional smoking assessment comments: smoked when was a teenager Alcohol intake: never Substance use: never Substance use type: does not use Do You Feel Safe in your Home?: Yes Lack of Transportation: No Lack of Food: Never True Current Housing: I Have Housing Concerned About Future Housing: No Difficulty Paying Gas/Electric Bills: No Difficulty Paying for Meds: No Currently Unemployed: No Education: Bachelor's Degree Difficulty w/ Childcare or Family Care: No Living arrangements: with family Spiritual care concerns: No Meds Home Medications and Allergies Home Medications Medication Instructions Recorded Confirmed Type No Home Medications 04/14/23 11/05/23 History Allergies Allergy/AdvReac Type Severity Reaction Status Date / Time No Known Allergies Allergy Unknown Verified 11/04/23 16:54 Vital Signs Vital Signs - 24 hr 11/04/23 18:34 11/04/23 18:46 11/04/23 18:34 Temperature Pulse Rate 61 60 72 Respiratory Rate Blood Pressure 110/79 100/71 Pulse Oximetry Oxygen Delivery 11/04/23 18:35 11/04/23 17:21 11/04/23 17:31 Temperature Pulse Rate 74 71 70 Respiratory Rate 23 H 16 Blood Pressure 70/57 L 112/75 113/79 Pulse Oximetry 99 97 Oxygen Delivery 11/04/23 17:46
[2023-11-05] MEDS: ENOXAPARIN 40 MG/0.4 ML SYRINGE SUB-Q (18:12)
[2023-11-06] VITALS (10 sets, daily range): BP systolic 87–133; BP diastolic 50–82; PULSE 55–79; RESP 16–20; TEMP 36.4–36.7; O2SAT 97–99
[2023-11-06 06:19] LABS: Hematocrit 42.4 % (42.0-52.0); Hemoglobin 14.4 g/dL (14.0-18.0); Mean Corpuscular Hemoglobin 32.2 pg (26-34); Mean Corpuscular Volume 94.9 fl (80-100); Mean Platelet Volume 10.7 fl (7.4-10.4); Platelet Count Result 183 k/mm3 (150-375); Red Blood Count 4.47 M/mm3 (4.6-6.20); Red Cell Distribution Width 13.8 % (11.5-14.5); White Blood Count 5.9 K/mm3 (4.5-10.0)
[2023-11-06 06:30] LABS: Anion Gap 8 mmol/L (4-12); Blood Urea Nitrogen 16 mg/dL (9-20); Calcium 9.3 mg/dL (8.4-10.2); Carbon Dioxide 23 mmol/L (22-30); Chloride 104 mmol/L (98-107); Estimated CRCL calculation 40 ml/min; Estimated Glomerular Filt Rate 58; Glucose 88 mg/dL (65-110); Magnesium 2.1 mg/dL (1.6-2.3); Potassium 3.9 mmol/L (3.4-5.0); Sodium 135 mmol/L (137-145)
--- NOTE | 2023-11-06 09:15 | PM.IMPN ---
Progress Note: A&P Assessment and Plan (1) Dehydration: Code(s): E86.0 - Dehydration Status: Acute (2) Orthostatic hypotension: Code(s): I95.1 - Orthostatic hypotension Status: Acute (3) Pre-syncope: Code(s): R55 - Syncope and collapse Status: Acute Plan Patient is a pleasant 83-year-old male with a PMH GERD, hyperlipidemia, neuropathy, gastritis who presents to [facility] for weakness and presyncope for 2 days prior to admission. is at bedside on presentation to assist with history. The patient was walking to his recliner and felt lightheaded and fell to the ground. This happened again sometime later. Denied loss of consciousness, seizure activity, aura, blunt head trauma. [facility] revealed blood pressure 93/61 and positive orthostatics, blood pressure when standing 70/57. Other workup was widely unremarkable. The patient's orthostatic hypotension improved with 2 L of fluids. Attempted to ambulate the patient in the ER but he had an unsteady gait therefore patient admitted on 11/05/2023 for unsteadiness, neuropathy, syncope, orthostatic hypotension. Upon admission nurse noted patient to have word-finding difficulty. CT scan head without contrast did not demonstrate acute abnormalities. --- His orthostatic hypotension is likely related to dehydration. Continue was saline at 100 cc/hour. Continue orthostatics Q shift. Patient will be seen by PT OT. Disposition pending therapy evaluations. November 05 update: Orthostatics still positive. The patient does not have good oral intake. Continue dietary supplements, continue normal saline. Dietitian recs appreciated. Abdominal binder ordered, orthostatics when the abdominal binder is placed. Still has word-finding difficulties. Still awaiting PT OT eval is. Neurology consultation as well. Currently unable to reach the spouse. F/E/N: Normal saline, heart healthy diet GI prophylaxis: Not indicated DVT prophylaxis: Lovenox Lines: Peripheral IV Code Status: Patient wishes to be full code Dispo: Stable on medical floor. Continue telemetry. Discontinue tomorrow if no events. Medication reconciliation obtained via the following: Nurse completed on admission. Reported no medications. Social Drivers of Health -Living arrangements, functional status, significant history: Patient lives at home with . -Patient was screened for food insecurity, housing instability, transportation needs, utility difficulties, and interpersonal safety. No needs identified Agents of Abuse -Illicit drug abuse: Denies -ETOH abuse: Denies -Tobacco/nicotine: Denies -Energy drinks: Denies -Additional supplements: Denies Note to the patient: The Century Cures Act makes medical notes like these available to patients in the interest of transparency. Please be advised this is a medical document. It is intended for [id number] communication. It is written in medical language and may contain unfamiliar abbreviations or verbiage. Components may appear blunt or direct. Medical documents are intended to carry relevant information, facts as evident, and the clinical opinion of the practitioner at the time of the encounter. This note was generated by a speech recognition system and may contain inherent errors or omissions not intended by the user. Grammatical errors, random word insertions, deletions, pronoun errors and incomplete sentences are occasional consequences of this technology due to software limitations. Not all errors are caught or corrected. If there are questions or concerns about the content of this note or information contained within the body of this dictation they should be addressed directly with author for clarification. The file time of this note does not necessarily represent the time the patient was seen. Subjective Date/time seen: 11/06/23 09:15 Interval history:
[2023-11-06] MEDS: SODIUM CHLORIDE 0.9% IV 1,000 ML 100 ML IV CONT ×2 (09:34→19:36)
[2023-11-06] MEDS: ENOXAPARIN 40 MG/0.4 ML SYRINGE SUB-Q (09:35)
--- NOTE | 2023-11-06 18:45 | WPDNEURCNPN ---
Assessment and Plan Assessment and plan (1) Ataxia: Code(s): R27.0 - Ataxia, unspecified Status: Acute (2) Orthostatic hypotension: Code(s): I95.1 - Orthostatic hypotension Status: Acute Plan I discussed the situation with the nursing staff since the family members are not available. The notice that he does have some imbalance when he tries to walk other than that he seems to be appropriate in be able to talk. Would suggest an MRI of the brain to look further into it. CT scan of brain did not show any abnormality. I should also go ahead and check her lipid profile B12 folic acid level and thyroid function test. physical therapy assessment and gait strengthening may also be a consideration was the blood pressure issues are stable. Of course looking for any underlying metabolic problems is underway and may also be helpful. Consult date: 11/06/23 HPI: Micheal Espinoza is a 83 year old male with history of onset of ataxia and lightheaded feeling. His blood pressure was found to be 93/61 supine and 70/57 standing and he was give no or supplement and a tolerated. Nevertheless he continues to imbalance particularly while walking. He uses was not present at the time of this evaluation. he denies any other specific symptoms. Patient hard of hearing but does have a hearing aid and does seem to pay attention to what is being said. He does not seem to be having any problem finding the words to express himself but he does admit that sometimes he cannot understand what is being said because the hearing problem. I noted that he has had a CT scan of brain with without contrast which did not show any significant abnormality. On specific questioning he denies any weakness in 1 or the other side of the arms or legs or any difficulty speech or swallowing. I am not sure if he had unresponsiveness that he just felt lightheaded. Review of Systems Review of Systems: Difficult due to hearing problems nevertheless he he denies any pain or any other specific issues All systems reviewed & are unremarkable except as noted in HPI and below [facility] Past Medical History Medical History (Updated 11/06/23 @ 18:53 by Clive Limon MD) Acute blood loss anemia Adenomatous colon polyp Ataxia COVID-19 Deep venous thrombosis Duodenal ulcer disease Gastroesophageal reflux disease GI bleed Helicobacter positive gastritis Hx of adenomatous colonic polyps Hx of deep venous thrombosis Hx of duodenal ulcer Hx of peptic ulcer Hx of prostatic malignancy Hyperlipidemia Iron deficiency anemia Lightheadedness Melena Prostate cancer Surgical History Surgical History History of cataract extraction with lens replacement History of cholecystectomy (2012) History of colonoscopy with polypectomy History of ear surgery History of esophagogastroduodenoscopy History of tonsillectomy Family History Family History Other Carcinoma of colon Family history of malignant neoplasm of thyroid Social History Social History Social History: Surrogate medical decision maker: Sven Espinoza, son. Code status: Full code. Caffeine-soda Smoking packs per day: 1 Smoking cigarettes per day: 20.0 Years smoked: 5 Smoking pack-years: 5.00 Smoking status: Former smoker Tobacco type: cigarettes Second hand tobacco smoke exposure: No Smoking end date: 04/19/1961 Additional smoking assessment comments: smoked when was a teenager Alcohol intake: never Substance use: never Substance use type: does not use Do You Feel Safe in your Home?: Yes Lack of Transportation: No Lack of Food: Never True Current Housing: I Have Housing Concerned About Future Housing: No Difficulty Paying Gas/Electric Bills: No Difficulty Paying for Meds: No Currently Unemplo
[2023-11-06 20:46] LABS: Cholesterol 184 mg/dL (0-200); HDL Direct 40 mg/dL; Triglycerides 128 mg/dL (<150)
[2023-11-06 20:58] LABS: LDL Cholesterol Direct 118 mg/dL
[2023-11-06 21:07] LABS: Vitamin D 25 Hydroxy 21.3 ng/mL
[2023-11-06 21:54] LABS: Folic Acid 4.6 ng/mL (2.76->20)
[2023-11-07] VITALS (8 sets, daily range): BP systolic 76–139; BP diastolic 51–93; PULSE 63–90; RESP 16–18; TEMP 36.6–36.8; O2SAT 91–100
[2023-11-07] MEDS: SODIUM CHLORIDE 0.9% IV 1,000 ML 100 ML IV CONT (05:36)
[2023-11-07] MEDS: ENOXAPARIN 40 MG/0.4 ML SYRINGE SUB-Q (08:47)
--- NOTE | 2023-11-07 13:50 | PM.IMPN ---
Progress Note: A&P Assessment and Plan (1) Dehydration: Code(s): E86.0 - Dehydration Status: Acute (2) Orthostatic hypotension: Code(s): I95.1 - Orthostatic hypotension Status: Acute (3) Pre-syncope: Code(s): R55 - Syncope and collapse Status: Acute Plan Patient is a pleasant 83-year-old male with a PMH GERD, hyperlipidemia, neuropathy, gastritis who presents to [facility] [place] ER for weakness and presyncope for 2 days prior to admission. is at bedside on presentation to assist with history. The patient was walking to his recliner and felt lightheaded and fell to the ground. This happened again sometime later. Denied loss of consciousness, seizure activity, aura, blunt head trauma. [facility] [place] ER revealed blood pressure 93/61 and positive orthostatics, blood pressure when standing 70/57. Other workup was widely unremarkable. The patient's orthostatic hypotension improved with 2 L of fluids. Attempted to ambulate the patient in the ER but he had an unsteady gait therefore patient admitted on 11/05/2023 for unsteadiness, neuropathy, syncope, orthostatic hypotension. Upon admission nurse noted patient to have word-finding difficulty. CT scan head without contrast did not demonstrate acute abnormalities. --- His orthostatic hypotension is likely related to dehydration. Continue was saline at 100 cc/hour. Continue orthostatics Q shift. Patient will be seen by PT OT. Disposition pending therapy evaluations. November 05 update: Orthostatics still positive. The patient does not have good oral intake. Continue dietary supplements, continue normal saline. Dietitian recs appreciated. Abdominal binder ordered, orthostatics when the abdominal binder is placed. Still has word-finding difficulties. Still awaiting PT OT eval is. Neurology consultation as well. Currently unable to reach the spouse. November 06 update: Still has positive orthostatic in spite of wearing the abdominal binder during the vitals. Unfortunately do not have waist high compression stockings here, advise the she can obtain them through [employer]. While the patient is asymptomatic during the orthostatic hypotension it is not completely resolved. Would be prudent to increase his fluids as he appears dehydrated. 150 cc of normal saline per hour. Consider starting midodrine tomorrow if still not better. Ongoing workup with Neurology for gait imbalance. Pending MRI brain. Would benefit from continued evaluation out of the hospital with Neurology for this autonomic dysfunction in this patient with gait imbalance and slow speech. F/E/N: Normal saline, heart healthy diet GI prophylaxis: Not indicated DVT prophylaxis: Lovenox Lines: Peripheral IV Code Status: Patient wishes to be full code Dispo: Stable on medical floor. Medication reconciliation obtained via the following: Nurse completed on admission. Reported no medications. Social Drivers of Health -Living arrangements, functional status, significant history: Patient lives at home with . -Patient was screened for food insecurity, housing instability, transportation needs, utility difficulties, and interpersonal safety. No needs identified Agents of Abuse -Illicit drug abuse: Denies -ETOH abuse: Denies -Tobacco/nicotine: Denies -Energy drinks: Denies -Additional supplements: Denies Note to the patient: The Century Cures Act makes medical notes like these available to patients in the interest of transparency. Please be advised this is a medical document. It is intended for pecv-wc-pici communication. It is written in medical language and may contain unfamiliar abbreviations or verbiage. Components may appear blunt or direct. Medical documents are intended to carry relevant information, facts as evident, and the clinical opinion of the practitioner at the time of the encounter. This note was generated b
[2023-11-07] MEDS: SODIUM CHLORIDE 0.9% IV 1,000 ML 150 ML IV CONT ×2 (15:43→22:24)
--- NOTE | 2023-11-07 17:58 | WPDNEUROPN ---
Progress Note: A&P Assessment and Plan (1) Ataxia: Code(s): R27.0 - Ataxia, unspecified Status: Acute (2) Dehydration: Code(s): E86.0 - Dehydration Status: Acute (3) Orthostatic hypotension: Code(s): I95.1 - Orthostatic hypotension Status: Acute Plan If the blood pressure still shows postural hypotension despite correction of dehydration there may be a room to consider low-dose midodrine . I have reviewed the MRI of the brain which did not show any significant abnormalities. Subjective Date/time seen: 11/07/23 17:58 Interval history: The patient is 83 years old with a history of ataxia and low blood pressure thought to be due to dehydration. The patient today is doing about the same and he did not feel that his walking is any worse than what it was in the last 2 weeks. His blood pressure does seem to be on the low side and is being managed at this time and there is some consideration regard to use of midodrine if necessary. He is not on any medication that could lead to hypotension and his dehydration issues being addressed. He denies any other additional new symptoms. Specifically he denies any diplopia nausea vomiting or weakness in upper lower limbs. Review of Systems Review of Systems: All systems reviewed & are unremarkable except as noted in HPI and below Exam Narrative: Fully conscious alert oriented to place and person the patient is hard of hearing but very cooperative and attentive. Exam showed cranial nerves motor and sensory system did not reveal any additional new findings. No nystagmus or intention tremors. Objective Data Vital Signs Vital Signs: Vital Signs - 24 hr 11/06/23 19:53 11/06/23 19:53 11/06/23 19:54 Temperature 36.5 C Pulse Rate 79 Respiratory Rate 16 Blood Pressure 111/74 111/74 87/50 L Pulse Oximetry 99 Oxygen Delivery 11/06/23 20:00 11/07/23 04:38 11/07/23 08:00 Temperature 36.6 C Pulse Rate 63 75 Respiratory Rate 16 Blood Pressure 107/66 120/75 Pulse Oximetry 99 99 96 Oxygen Delivery Room Air 11/07/23 08:46 11/07/23 08:46 11/07/23 08:45 Temperature Pulse Rate 77 90 Respiratory Rate Blood Pressure 97/65 L 76/51 L Pulse Oximetry 98 91 Oxygen Delivery Room Air 11/07/23 13:40 Temperature 36.8 C Pulse Rate 66 Respiratory Rate 18 Blood Pressure 106/67 Pulse Oximetry 100 Oxygen Delivery Intake/Output Intake/Output: Intake & Output 11/04/23 11/05/23 11/06/23 11/07/23 23:59 23:59 23:59 23:59 Intake Total 1999 3556.7 2560 2170 Output Total 3850 1235 200 Balance 1999 -293.3 1325 1970 Meds/Results Medications: Active Medications Generic Name Dose Route Start Last Admin Trade Name Freq PRN Reason Stop Dose Admin Enoxaparin Sodium 40 mg 11/05/23 17:20 11/07/23 08:47 Enoxaparin 40 Mg/0.4 Ml Syringe SUB-Q 40 mg DAILY NICOLE Administration Sodium Chloride 1,000 mls @ 150 mls/hr 11/04/23 21:35 11/07/23 15:43 Normal Saline Iv IV CONT 150 mls/hr .[id number] NICOLE Administration Radiology Results: ITS Impressions Chest X-Ray 11/04/23 18:33 IMPRESSION: No acute cardiopulmonary pathology. Head CT 11/05/23 08:57 Impression: No significant abnormality seen. Brain MRI 11/07/23 16:46 IMPRESSION: 1. No acute intracranial process. 2. 12 x 6 mm lenticular extra-axial mass along the right petrous apex, potentially chronic and statistically most likely to represent a meningioma. Correlate with any prior outside imaging and could consider obtaining contrast-enhanced MRI to assess for dural continuity confirmed presence of any additional lesions. 3. Mild scattered nonspecific white matter T2 hyperintensity which is within normal limits for age and likely sequela of chronic small vessel ischemic disease. Labs Labs: Laboratory Results - last 24 hr 11/06/23 20:25 Triglycerides 128 Cholesterol 184 LDL Cholesterol Direct 118
[2023-11-08] VITALS (7 sets, daily range): BP systolic 91–131; BP diastolic 59–85; PULSE 64–80; RESP 17–24; TEMP 36.5–36.9; O2SAT 97–99
[2023-11-08] MEDS: SODIUM CHLORIDE 0.9% IV 1,000 ML 150 ML IV CONT ×2 (05:14→12:37)
[2023-11-08] MEDS: ENOXAPARIN 40 MG/0.4 ML SYRINGE SUB-Q (08:58)
--- NOTE | 2023-11-08 11:59 | PC.NURSE ---
Patient in bed resting comfortably. No complaints of pain at this time. IV infusing. Urinal emptied and charted output. Returned 's call and left message at [phone]. No reports since yesterday and no labs since 11/06/23. called back again at [phone]. Questions and concerns address. Spoke with care coordination stating Sven would like them to call him for an update.
--- NOTE | 2023-11-08 14:38 | PM.IMPN ---
Progress Note: A&P Assessment and Plan (1) Dehydration: Code(s): E86.0 - Dehydration Status: Acute (2) Orthostatic hypotension: Code(s): I95.1 - Orthostatic hypotension Status: Acute (3) Pre-syncope: Code(s): R55 - Syncope and collapse Status: Acute Plan Patient is a pleasant 83-year-old male with a PMH GERD, hyperlipidemia, neuropathy, gastritis who presents to [place] [facility] for weakness and presyncope for 2 days prior to admission. is at bedside on presentation to assist with history. The patient was walking to his recliner and felt lightheaded and fell to the ground. This happened again sometime later. Denied loss of consciousness, seizure activity, aura, blunt head trauma. [place] ER revealed blood pressure 93/61 and positive orthostatics, blood pressure when standing 70/57. Other workup was widely unremarkable. The patient's orthostatic hypotension improved with 2 L of fluids. Attempted to ambulate the patient in the ER but he had an unsteady gait therefore patient admitted on 11/05/2023 for unsteadiness, neuropathy, syncope, orthostatic hypotension. Upon admission nurse noted patient to have word-finding difficulty. CT scan head without contrast did not demonstrate acute abnormalities. --- His orthostatic hypotension is likely related to dehydration. Continue was saline at 100 cc/hour. Continue orthostatics Q shift. Patient will be seen by PT OT. Disposition pending therapy evaluations. November 05 update: Orthostatics still positive. The patient does not have good oral intake. Continue dietary supplements, continue normal saline. Dietitian recs appreciated. Abdominal binder ordered, orthostatics when the abdominal binder is placed. Still has word-finding difficulties. Still awaiting PT OT eval is. Neurology consultation as well. Currently unable to reach the spouse. November 06 update: Still has positive orthostatic in spite of wearing the abdominal binder during the vitals. Unfortunately do not have waist high compression stockings here, advise the she can obtain them through [email or web address]. While the patient is asymptomatic during the orthostatic hypotension it is not completely resolved. Would be prudent to increase his fluids as he appears dehydrated. 150 cc of normal saline per hour. Consider starting midodrine tomorrow if still not better. Ongoing workup with Neurology for gait imbalance. Pending MRI brain. Would benefit from continued evaluation out of the hospital with Neurology for this autonomic dysfunction in this patient with gait imbalance and slow speech. November 07: Start midodrine 5 mg p.o. t.i.d.. Monitor for improvement. Continue orthostatics Q shift with abdominal binder. Appreciate Neurology recommendations. F/E/N: Saline lock IV, heart healthy diet GI prophylaxis: Not indicated DVT prophylaxis: Lovenox Lines: Peripheral IV Code Status: Patient wishes to be full code Dispo: Stable on medical floor. Medication reconciliation obtained via the following: Nurse completed on admission. Reported no medications. Social Drivers of Health -Living arrangements, functional status, significant history: Patient lives at home with . -Patient was screened for food insecurity, housing instability, transportation needs, utility difficulties, and interpersonal safety. No needs identified Agents of Abuse -Illicit drug abuse: Denies -ETOH abuse: Denies -Tobacco/nicotine: Denies -Energy drinks: Denies -Additional supplements: Denies Note to the patient: The 21st Century Cures Act makes medical notes like these available to patients in the interest of transparency. Please be advised this is a medical document. It is intended for bdya-fe-dhvu communication. It is written in medical language and may contain unfamiliar abbreviations or verbiage. Components may appear blunt or direct. Medical document
[2023-11-08] MEDS: MIDODRINE HCL 2.5 MG TABLET 5 MG PO ×2 (14:55→16:56)
[2023-11-09] VITALS (9 sets, daily range): BP systolic 62–125; BP diastolic 44–73; PULSE 63–85; RESP 16–22; TEMP 36.5–36.8; O2SAT 95–100
[2023-11-09] MEDS: MIDODRINE HCL 10 MG TABLET PO ×3 (08:32→17:33)
[2023-11-09] MEDS: ENOXAPARIN 40 MG/0.4 ML SYRINGE SUB-Q (08:32)
[2023-11-09] MEDS: FLUDROCORTISONE ACETATE 0.1 MG TABLET PO (11:25)
--- NOTE | 2023-11-09 12:42 | PM.IMPN ---
Progress Note: A&P Assessment and Plan (1) Dehydration: Code(s): E86.0 - Dehydration Status: Acute (2) Orthostatic hypotension: Code(s): I95.1 - Orthostatic hypotension Status: Acute (3) Pre-syncope: Code(s): R55 - Syncope and collapse Status: Acute Plan Patient is a pleasant 83-year-old male with a PMH GERD, hyperlipidemia, neuropathy, gastritis who presents to [place] ER for weakness and presyncope for 2 days prior to admission. is at bedside on presentation to assist with history. The patient was walking to his recliner and felt lightheaded and fell to the ground. This happened again sometime later. Denied loss of consciousness, seizure activity, aura, blunt head trauma. [facility] ER revealed blood pressure 93/61 and positive orthostatics, blood pressure when standing 70/57. Other workup was widely unremarkable. The patient's orthostatic hypotension improved with 2 L of fluids. Attempted to ambulate the patient in the ER but he had an unsteady gait therefore patient admitted on 11/05/2023 for unsteadiness, neuropathy, syncope, orthostatic hypotension. Upon admission nurse noted patient to have word-finding difficulty. CT scan head without contrast did not demonstrate acute abnormalities. --- His orthostatic hypotension is likely related to dehydration. Continue was saline at 100 cc/hour. Continue orthostatics Q shift. Patient will be seen by PT OT. Disposition pending therapy evaluations. November 05 update: Orthostatics still positive. The patient does not have good oral intake. Continue dietary supplements, continue normal saline. Dietitian recs appreciated. Abdominal binder ordered, orthostatics when the abdominal binder is placed. Still has word-finding difficulties. Still awaiting PT OT eval is. Neurology consultation as well. Currently unable to reach the spouse. November 06 update: Still has positive orthostatic in spite of wearing the abdominal binder during the vitals. Unfortunately do not have waist high compression stockings here, advise the she can obtain them through [employer]. While the patient is asymptomatic during the orthostatic hypotension it is not completely resolved. Would be prudent to increase his fluids as he appears dehydrated. 150 cc of normal saline per hour. Consider starting midodrine tomorrow if still not better. Ongoing workup with Neurology for gait imbalance. Pending MRI brain. Would benefit from continued evaluation out of the hospital with Neurology for this autonomic dysfunction in this patient with gait imbalance and slow speech. November 07: Start midodrine 5 mg p.o. t.i.d.. Monitor for improvement. Continue orthostatics Q shift with abdominal binder. Appreciate Neurology recommendations. November 08: Midodrine increased from 5 mg to 10 mg p.o. t.i.d.. After the 1st 10 mg dose the patient had orthostatic vitals performed. Blood pressure supine 103/58, 62/44 while sitting. This time he was symptomatic complaining of dizziness and feeling very weak. Patient has received volume resuscitation and is positive 4 L since admission. Start fludrocortisone 0.1 mg q.day starting now. Continue to wear abdominal binder. Attempting to retrieve waist high compression stockings as well. Complaining of hip pain, will hold off on obtaining x-rays until tomorrow. Continue orthostatics Q shift. Will also need a follow-up MRI in 2-3 months F/E/N: Saline lock IV, heart healthy diet GI prophylaxis: Not indicated DVT prophylaxis: Lovenox Lines: Peripheral IV Code Status: Patient wishes to be full code Dispo: Stable on medical floor. Medication reconciliation obtained via the following: Nurse completed on admission. Reported no medications. Social Drivers of Health -Living arrangements, functional status, significant history: Patient lives at home with . -Patient was screened for food insecurity, housing instability,
[2023-11-10] VITALS (12 sets, daily range): BP systolic 80–136; BP diastolic 40–75; PULSE 55–90; RESP 15–16; TEMP 36.6–37; O2SAT 97–99
[2023-11-10] MEDS: SODIUM CHLORIDE 0.9% IV 1,000 ML 999 ML IV CONT (05:13)
[2023-11-10 05:44] LABS: Methylmalonic Acid 125 nmol/L (85-423)
[2023-11-10 05:56] LABS: Hematocrit 41.9 % (42.0-52.0); Mean Corpuscular HGB Conc 33.4 g/dl (32-36); Mean Corpuscular Hemoglobin 31.7 pg (26-34); Mean Platelet Volume 10.9 fl (7.4-10.4); Platelet Count Result 197 k/mm3 (150-375); Red Blood Count 4.41 M/mm3 (4.6-6.20); Red Cell Distribution Width 14.1 % (11.5-14.5); White Blood Count 6.8 K/mm3 (4.5-10.0)
[2023-11-10 06:13] LABS: Anion Gap 6 mmol/L (4-12); Blood Urea Nitrogen 15 mg/dL (9-20); Calcium 9.6 mg/dL (8.4-10.2); Carbon Dioxide 29 mmol/L (22-30); Chloride 99 mmol/L (98-107); Estimated CRCL calculation 43 ml/min; Estimated Glomerular Filt Rate > 60; Glucose 82 mg/dL (65-110); Potassium 3.6 mmol/L (3.4-5.0); Sodium 134 mmol/L (137-145)
[2023-11-10 06:43] LABS: Cortisol Random 9.02 ug/dL
[2023-11-10] MEDS: COSYNTROPIN 0.25 MG/ML VIAL IV PUSH (07:46)
[2023-11-10] MEDS: FLUDROCORTISONE ACETATE 0.1 MG TABLET PO (09:45)
[2023-11-10] MEDS: ENOXAPARIN 40 MG/0.4 ML SYRINGE SUB-Q (09:45)
[2023-11-10] MEDS: MIDODRINE HCL 10 MG TABLET PO ×3 (09:45→16:56)
--- NOTE | 2023-11-10 10:40 | PCNFU ---
Nutrition Follow-Up Complete: Unintended weight loss as related to possible gastritis as evidenced by 9 ib weight loss in 2 months. Goal: Adequate Intake of at least 75% of meals/supplements Patient is meeting current goal. No new goal. Pt current nutrition is Heart Healthy with Ensure Compact BID. Last recorded weight is 66.8 kg, no new weight reported. Bowel Motility: +BM reported 11/08 Labs Reviewed:Na 134, Hct 41.9 Meds Noted: Lovenox, Midodrine. Skin: WNL Additional Notes: Patient remains on a heart healthy diet. Intake has been 50-100% of meals. Ensure Compact BID providing an additional 220 kcal and 9 gm protein. Agree with diet orders. Will monitor weight, labs, skin, oral intake, meds every 7 days.
--- NOTE | 2023-11-10 10:43 | PM.IMPN ---
Progress Note: A&P Assessment and Plan (1) Ataxia: Code(s): R27.0 - Ataxia, unspecified Status: Acute (2) Dehydration: Code(s): E86.0 - Dehydration Status: Acute (3) Orthostatic hypotension: Code(s): I95.1 - Orthostatic hypotension Status: Acute Plan Patient is a pleasant 83-year-old male with a PMH GERD, hyperlipidemia, neuropathy, gastritis who presents to [place] ER for weakness and presyncope for 2 days prior to admission. is at bedside on presentation to assist with history. The patient was walking to his recliner and felt lightheaded and fell to the ground. This happened again sometime later. Denied loss of consciousness, seizure activity, aura, blunt head trauma. [place] ER revealed blood pressure 93/61 and positive orthostatics, blood pressure when standing 70/57. Other workup was widely unremarkable. The patient's orthostatic hypotension improved with 2 L of fluids. Attempted to ambulate the patient in the ER but he had an unsteady gait therefore patient admitted on 11/05/2023 for unsteadiness, neuropathy, syncope, orthostatic hypotension. Upon admission nurse noted patient to have word-finding difficulty. CT scan head without contrast did not demonstrate acute abnormalities. --- His orthostatic hypotension is likely related to dehydration. Continue was saline at 100 cc/hour. Continue orthostatics Q shift. Patient will be seen by PT OT. Disposition pending therapy evaluations. November 05 update: Orthostatics still positive. The patient does not have good oral intake. Continue dietary supplements, continue normal saline. Dietitian recs appreciated. Abdominal binder ordered, orthostatics when the abdominal binder is placed. Still has word-finding difficulties. Still awaiting PT OT eval is. Neurology consultation as well. Currently unable to reach the spouse. November 06 update: Still has positive orthostatic in spite of wearing the abdominal binder during the vitals. Unfortunately do not have waist high compression stockings here, advise the she can obtain them through [employer]. While the patient is asymptomatic during the orthostatic hypotension it is not completely resolved. Would be prudent to increase his fluids as he appears dehydrated. 150 cc of normal saline per hour. Consider starting midodrine tomorrow if still not better. Ongoing workup with Neurology for gait imbalance. Pending MRI brain. Would benefit from continued evaluation out of the hospital with Neurology for this autonomic dysfunction in this patient with gait imbalance and slow speech. November 07: Start midodrine 5 mg p.o. t.i.d.. Monitor for improvement. Continue orthostatics Q shift with abdominal binder. Appreciate Neurology recommendations. November 08: Midodrine increased from 5 mg to 10 mg p.o. t.i.d.. After the 1st 10 mg dose the patient had orthostatic vitals performed. Blood pressure supine 103/58, 62/44 while sitting. This time he was symptomatic complaining of dizziness and feeling very weak. Patient has received volume resuscitation and is positive 4 L since admission. Start fludrocortisone 0.1 mg q.day starting now. Continue to wear abdominal binder. Attempting to retrieve waist high compression stockings as well. Complaining of hip pain, will hold off on obtaining x-rays until tomorrow. Continue orthostatics Q shift. Will also need a follow-up MRI in 2-3 months November 09: Patient was hypotensive even while lying down last night. Status post 1 L normal saline improved his blood pressure. The night doctor checked his cortisol level which was 9. Cosyntropin stimulation test performed and at 30 minutes his cortisol was 22 and at 60 minutes his cortisol was 34. True adrenal insufficiency unlikely. Subsequently the patient received his morning midodrine and hydrocortisone dose and then orthostatics were attempted. He was positive from supine to sitting and then was unable to stand up due t
[2023-11-10] MEDS: SODIUM CHLORIDE 0.9% IV 1,000 ML 150 ML IV CONT ×2 (10:57→17:38)
[2023-11-11] VITALS (8 sets, daily range): BP systolic 52–132; BP diastolic 38–70; PULSE 56–86; RESP 14–16; TEMP 36.7–37.2; O2SAT 96–99
--- NOTE | 2023-11-11 | ECHO_ITS ---
Patient Info Name: Micheal Espinoza Age: 83 years : 1940 Gender: Male Ht: 70 in Wt: 183 lbs BSA: 2.04 m2 HR: 80 bpm BP: 76 / 50 mmHg Heart Rhythm: Sinus Rhythm Technical Quality: Fair Exam Date: 11/11/2023 2:00 PM Exam Location: Echo Lab Patient Status: Inpatient Admit Date: 11/07/2023 Staff Ordering Physician: Mahin Ulloa MD Traffic Control Technician: Kari Whalen RDCS Attending Provider: Yu Garcia DO Exam Type: CA echo dop color flow w con Study Info Indications - hypotension Complete two-dimensional, color flow and Doppler transthoracic echocardiogram is performed. Summary 1. Left ventricular chamber dimension is normal. 2. Left ventricular systolic function is normal, estimated at 65-70%. 3. The left ventricular diastolic function is grade I diastolic dysfunction. 4. Right ventricular chamber dimension is mildly enlarged. 5. Right ventricular systolic function is normal. 6. Left atrial chamber dimension is mildly enlarged. 7. No significant valvular disease. Left Ventricle Left ventricular chamber dimension is normal. Left ventricular systolic function is normal, estimated at 65-70%. There is no increased left ventricular wall thickness. The left ventricular diastolic function is grade I diastolic dysfunction. Right Ventricle Right ventricular chamber dimension is mildly enlarged. Right ventricular systolic function is normal. Left Atria Left atrial chamber dimension is mildly enlarged. Right Atria Right atrial chamber dimension is normal. Atrial Septum Intact interatrial septum visualized by color flow imaging. Aortic Valve The aortic valve is probable trileaflet. There is moderate aortic valve sclerosis. There is no aortic valve stenosis. There is trace aortic valve regurgitation. Pulmonic Valve The pulmonic valve is not well visualized. Mitral Valve There is trace mitral valve regurgitation. Tricuspid Valve There is trace tricuspid valve regurgitation. Pericardium/Pleural There is no pericardial effusion. Inferior Vena Cava Normal inferior vena cava with >50% collapse upon inspiration consistent with normal right atrial pressure, 3 mmHg. Aorta The aortic root size at the sinus of Valsalva is normal. Left Ventricular Outflow Tract Name Value Normal LVOT 2D LVOT Diameter 2.03 cm LVOT Doppler LVOT Peak Gradient 2 mmHg LVOT Mean Gradient 1 mmHg LVOT VTI 15.59 cm LVOT VTI/AV VTI Ratio 0.57 LVOT Stroke Volume 50.49 ml LVOT CO 3.63 l/min LVOT CI 1.78 L/min/m2 Pulmonic Valve Name Value Normal PV Doppler PV Peak Gradient 3 mmHg Mitral Valve Name Value Normal
[2023-11-11] MEDS: SODIUM CHLORIDE 0.9% IV 1,000 ML 150 ML IV CONT ×4 (00:24→22:01)
--- NOTE | 2023-11-11 05:44 | PM.IMPN ---
Progress Note: A&P Assessment and Plan (1) Ataxia: Code(s): R27.0 - Ataxia, unspecified Status: Acute (2) Dehydration: Code(s): E86.0 - Dehydration Status: Acute (3) Orthostatic hypotension: Code(s): I95.1 - Orthostatic hypotension Status: Acute Plan Patient is a pleasant 83-year-old male with a PMH GERD, hyperlipidemia, neuropathy, gastritis who presents to [place] [facility] for weakness and presyncope for 2 days prior to admission. is at bedside on presentation to assist with history. The patient was walking to his recliner and felt lightheaded and fell to the ground. This happened again sometime later. Denied loss of consciousness, seizure activity, aura, blunt head trauma. [place] [facility] revealed blood pressure 93/61 and positive orthostatics, blood pressure when standing 70/57. Other workup was widely unremarkable. The patient's orthostatic hypotension improved with 2 L of fluids. Attempted to ambulate the patient in the ER but he had an unsteady gait therefore patient admitted on 11/05/2023 for unsteadiness, neuropathy, syncope, orthostatic hypotension. Upon admission nurse noted patient to have word-finding difficulty. CT scan head without contrast did not demonstrate acute abnormalities. Orthostatic hypotension is likely related to dehydration. Continue was saline at 100 cc/hour. Continue orthostatics Q shift. Patient will be seen by PT OT. Disposition pending therapy evaluations. cortisol stimulation test with very appropriate rise. continues to remain orthostatic. neurology consulted. abdominal binder ordered, compression stockings. added midodrine. MRI brain with no acute intracranial process. 12 x 6 mm Jarad cooler extra-axial mass along the right petrous apex, potentially chronic and status legally most likely to represent a meningioma. Mild scattered nonspecific white matter T2 hyperintensity is within normal limits for age and likely sequela of chronic small vessel ischemic disease. Started on fludrocortisone 11/09/2023 Continue to have orthostatic hypotension F/E/N: Normal saline at 150 cc/hour, heart healthy diet GI prophylaxis: Not indicated DVT prophylaxis: Lovenox Lines: Peripheral IV Code Status: Patient wishes to be full code Dispo: Stable on medical floor. Subjective Date/time seen: 11/11/23 05:44 Interval history: No major acute overnight events. no new complaints. orthostatic positive. Review of Systems Review of Systems: All systems reviewed & are unremarkable except as noted in HPI and below (Subjective) Exam Narrative: GENERAL: Well-appearing, well-nourished, and in no acute distress. Laying in bed HEAD: Normocephalic, atraumatic. EYES: PERRLA and EOMI. ENT: Nares clear, no rhinorrhea or epistaxis. Mucous membranes moist. NECK: Supple. CHEST: Clear to auscultation. No respiratory distress. HEART: Regular rate and rhythm. No murmur heard. Normal peripheral pulses. ABDOMEN: Soft, nontender, nondistended, normal active bowel sounds. EXTREMITIES: Normal range of motion. No edema. SKIN: Warm, dry, no rash. NEURO: No focal deficits. Alert and oriented x3 Objective Data Vital Signs Vital Signs: Vital Signs - 24 hr 11/10/23 06:00 11/10/23 10:30 11/10/23 10:35 Temperature 98.3 F Pulse Rate 63 Respiratory Rate 16 Blood Pressure 114/71 120/66 96/60 L Pulse Oximetry 99 Oxygen Delivery 11/10/23 08:00 11/10/23 13:11 11/10/23 13:12 Temperature 98.4 F Pulse Rate 72 Respiratory Rate 16 Blood Pressure 109/65 109/65 Pulse Oximetry 98 Oxygen Delivery Room Air 11/10/23 13:13 11/10/23 16:20 11/10/23 16:20 Temperature Pulse Rate Respiratory Rate Blood Pressure 96/57 L 119/63 93/56 L Pulse Oximetry Oxygen Delivery 11/10/23 16:20 11/10/23 20:55 11/10/23 20:55 Temperature 97.8 F Pulse Rate 62 62 Respiratory Rate 16 Blood Pressure 91/62 L 136/75 136/75 Pulse Oximetry 98 Oxygen Del
[2023-11-11 05:52] LABS: Basophils Percent Auto 0.7 % (0.2-1.2); Eosinophils Percent Auto 0.2 % (0-4.4); Hematocrit 41.1 % (42.0-52.0); Immature Granulocyte Absolute 0.04 K/mm3 (0.00-0.031); Immature Granulocyte Percent A 0.9 % (0-0.5); Lymphocytes Absolute Auto 0.48 K/mm3 (0.9-3.2); Lymphocytes Percent Auto 10.9 % (18.3-44.2); Mean Corpuscular HGB Conc 34.1 g/dl (32-36); Mean Corpuscular Hemoglobin 32.3 pg (26-34); Mean Corpuscular Volume 94.7 fl (80-100); Mean Platelet Volume 10.6 fl (7.4-10.4); Monocytes Absolute Auto 0.2 K/mm3 (0.1-0.6); Monocytes Percent Auto 5.2 % (2.6-8.5); Neutrophils Absolute Auto 3.6 K/mm3 (1.3-6.7); Neutrophils Percent Auto 82.1 % (45.5-73.1); Platelet Count Result 147 k/mm3 (150-375); Red Blood Count 4.34 M/mm3 (4.6-6.20); Red Cell Distribution Width 14.1 % (11.5-14.5); White Blood Count 4.4 K/mm3 (4.5-10.0)
[2023-11-11 06:10] LABS: Alanine Aminotransferase 14 U/L (6-50); Albumin Level 3.2 g/dL (3.5-5.1); Alkaline Phosphatase 37 U/L (38-126); Anion Gap 9 mmol/L (4-12); Aspartate Amino Transferase 26 U/L (17-59); Bilirubin,Total 1.4 mg/dL (0.2-1.3); Blood Urea Nitrogen 12 mg/dL (9-20); Calcium 9.1 mg/dL (8.4-10.2); Carbon Dioxide 23 mmol/L (22-30); Chloride 101 mmol/L (98-107); Estimated CRCL calculation 43 ml/min; Estimated Glomerular Filt Rate > 60; Glucose 81 mg/dL (65-110); Magnesium 1.8 mg/dL (1.6-2.3); Phosphorus 3.1 mg/dL (2.5-4.5); Potassium 3.4 mmol/L (3.4-5.0); Sodium 133 mmol/L (137-145)
[2023-11-11] MEDS: ENOXAPARIN 40 MG/0.4 ML SYRINGE SUB-Q (09:23)
[2023-11-11] MEDS: MIDODRINE HCL 10 MG TABLET PO ×3 (09:23→17:22)
[2023-11-11] MEDS: FLUDROCORTISONE ACETATE 0.1 MG TABLET PO ×2 (09:23→10:54)
[2023-11-11] MEDS: PERFLUTREN LIPID MICROSPHERES 1.5 ML VIAL DILUTED TO 10 ML TOTAL VOLUME IV PUSH (14:00)
--- NOTE | 2023-11-11 14:34 | IVDEFINITY ---
Prior to administration of IV Definity the patient was educated on the risks and benefits of the imaging enhancing agent including potential adverse side effects. The patient verbalized understanding. Allergies were verified. No exclusion criteria were identified and at least one of the following inclusion criteria were met: 1) physician request, 2) patient technically difficult to image (per the [place] [employer] guidelines of two or more segments not discernable within the apical view), or 3) questionable left ventricular function. ?
[2023-11-12] VITALS (9 sets, daily range): BP systolic 77–142; BP diastolic 52–72; PULSE 59–68; RESP 16–18; TEMP 36.3–36.9; O2SAT 96–99
[2023-11-12 05:06] LABS: Basophils Percent Auto 0.5 % (0.2-1.2); Eosinophils Absolute Auto 0.1 K/mm3 (0-0.3); Eosinophils Percent Auto 1.3 % (0-4.4); Hematocrit 38.1 % (42.0-52.0); Hemoglobin 12.8 g/dL (14.0-18.0); Immature Granulocyte Absolute 0.03 K/mm3 (0.00-0.031); Immature Granulocyte Percent A 0.5 % (0-0.5); Lymphocytes Absolute Auto 0.66 K/mm3 (0.9-3.2); Lymphocytes Percent Auto 11.9 % (18.3-44.2); Mean Corpuscular HGB Conc 33.6 g/dl (32-36); Mean Corpuscular Hemoglobin 31.8 pg (26-34); Mean Corpuscular Volume 94.8 fl (80-100); Mean Platelet Volume 10.3 fl (7.4-10.4); Monocytes Absolute Auto 0.6 K/mm3 (0.1-0.6); Monocytes Percent Auto 11.6 % (2.6-8.5); Neutrophils Absolute Auto 4.1 K/mm3 (1.3-6.7); Neutrophils Percent Auto 74.2 % (45.5-73.1); Platelet Count Result 141 k/mm3 (150-375); Red Blood Count 4.02 M/mm3 (4.6-6.20); Red Cell Distribution Width 14.3 % (11.5-14.5); White Blood Count 5.5 K/mm3 (4.5-10.0)
[2023-11-12 05:08] LABS: Alanine Aminotransferase 16 U/L (6-50); Albumin Level 2.8 g/dL (3.5-5.1); Alkaline Phosphatase 35 U/L (38-126); Anion Gap 7 mmol/L (4-12); Aspartate Amino Transferase 23 U/L (17-59); Blood Urea Nitrogen 11 mg/dL (9-20); Calcium 8.9 mg/dL (8.4-10.2); Carbon Dioxide 23 mmol/L (22-30); Chloride 101 mmol/L (98-107); Estimated CRCL calculation 48 ml/min; Estimated Glomerular Filt Rate > 60; Glucose 80 mg/dL (65-110); Magnesium 1.8 mg/dL (1.6-2.3); Potassium 3.3 mmol/L (3.4-5.0); Sodium 131 mmol/L (137-145)
[2023-11-12] MEDS: SODIUM CHLORIDE 0.9% IV 1,000 ML 150 ML IV CONT ×2 (05:11→12:59)
[2023-11-12] MEDS: MIDODRINE HCL 10 MG TABLET PO ×3 (09:03→18:05)
[2023-11-12] MEDS: ENOXAPARIN 40 MG/0.4 ML SYRINGE SUB-Q (09:03)
[2023-11-12] MEDS: FLUDROCORTISONE ACETATE 0.1 MG TABLET 0.2 MG PO (09:03)
--- NOTE | 2023-11-12 16:24 | PM.IMPN ---
Progress Note: A&P Assessment and Plan (1) Ataxia: Code(s): R27.0 - Ataxia, unspecified Status: Acute (2) Dehydration: Code(s): E86.0 - Dehydration Status: Acute (3) Orthostatic hypotension: Code(s): I95.1 - Orthostatic hypotension Status: Acute Plan Patient is a pleasant 83-year-old male with a PMH GERD, hyperlipidemia, neuropathy, gastritis who presents to [place] [facility] for weakness and presyncope for 2 days prior to admission. is at bedside on presentation to assist with history. The patient was walking to his recliner and felt lightheaded and fell to the ground. This happened again sometime later. Denied loss of consciousness, seizure activity, aura, blunt head trauma. [place] [facility] revealed blood pressure 93/61 and positive orthostatics, blood pressure when standing 70/57. Other workup was widely unremarkable. The patient's orthostatic hypotension improved with 2 L of fluids. Attempted to ambulate the patient in the ER but he had an unsteady gait therefore patient admitted on 11/05/2023 for unsteadiness, neuropathy, syncope, orthostatic hypotension. Upon admission nurse noted patient to have word-finding difficulty. CT scan head without contrast did not demonstrate acute abnormalities. Orthostatic hypotension is likely related to dehydration. Continue was saline at 100 cc/hour. Continue orthostatics Q shift. Patient will be seen by PT OT. Disposition pending therapy evaluations. cortisol stimulation test with very appropriate rise. continues to remain orthostatic. neurology consulted. abdominal binder ordered, compression stockings. added midodrine. MRI brain with no acute intracranial process. 12 x 6 mm Jarad cooler extra-axial mass along the right petrous apex, potentially chronic and status legally most likely to represent a meningioma. Mild scattered nonspecific white matter T2 hyperintensity is within normal limits for age and likely sequela of chronic small vessel ischemic disease. Started on fludrocortisone 11/09/2023 and increase the dose Continue to have orthostatic hypotension Seems a bit short of breath today. Chest x-ray ordered. Fluid today. Echocardiogram reviewed F/E/N: Normal saline at 150 cc/hour, heart healthy diet GI prophylaxis: Not indicated DVT prophylaxis: Lovenox Lines: Peripheral IV Code Status: Patient wishes to be full code Dispo: Stable on medical floor. Subjective Date/time seen: 11/12/23 16:24 Interval history: No major acute overnight events. This is is feeling a bit short of breath. Orthostatic still present. Denies obvious dizziness Review of Systems Review of Systems: All systems reviewed & are unremarkable except as noted in HPI and below (Subjective) Exam Narrative: GENERAL: Well-appearing, well-nourished, and in no acute distress. Laying in bed HEAD: Normocephalic, atraumatic. EYES: PERRLA and EOMI. ENT: Nares clear, no rhinorrhea or epistaxis. Mucous membranes moist. NECK: Supple. CHEST: Clear to auscultation. No respiratory distress. HEART: Regular rate and rhythm. No murmur heard. Normal peripheral pulses. ABDOMEN: Soft, nontender, nondistended, normal active bowel sounds. EXTREMITIES: Normal range of motion. No edema. SKIN: Warm, dry, no rash. NEURO: No focal deficits. Alert and oriented x3 Objective Data Vital Signs Vital Signs: Vital Signs - 24 hr 11/11/23 20:00 11/11/23 21:11 11/11/23 21:11 Temperature 98.9 F Pulse Rate 56 L 56 L Respiratory Rate 16 Blood Pressure 132/70 132/70 Pulse Oximetry 98 99 Oxygen Delivery Room Air 11/11/23 21:18 11/11/23 21:24 11/12/23 06:47 Temperature 98.4 F Pulse Rate 77 86 61 Respiratory Rate 16 Blood Pressure 98/67 L 76/50 L 100/58 L Pulse Oximetry 96 Oxygen Delivery 11/12/23 08:00 11/12/23 10:29 11/12/23 08:00 Temperature Pulse Rate 62 68 Respiratory Rate Blood Pressure 97/63 L 87/52 L Pulse Oximetry 98 98 Oxygen Delivery
[2023-11-13] VITALS (8 sets, daily range): BP systolic 96–144; BP diastolic 59–79; PULSE 58–74; RESP 14–18; TEMP 36.3–37; O2SAT 97–100
[2023-11-13] MEDS: ENOXAPARIN 40 MG/0.4 ML SYRINGE SUB-Q (08:42)
[2023-11-13] MEDS: FLUDROCORTISONE ACETATE 0.1 MG TABLET 0.2 MG PO (08:42)
[2023-11-13] MEDS: MIDODRINE HCL 10 MG TABLET PO ×3 (08:42→16:19)
--- NOTE | 2023-11-13 12:22 | PM.IMPN ---
Progress Note: A&P Assessment and Plan (1) Ataxia: Code(s): R27.0 - Ataxia, unspecified Status: Acute (2) Dehydration: Code(s): E86.0 - Dehydration Status: Acute (3) Orthostatic hypotension: Code(s): I95.1 - Orthostatic hypotension Status: Acute Plan Patient is a pleasant 83-year-old male with a PMH GERD, hyperlipidemia, neuropathy, gastritis who presents to [place] [facility] for weakness and presyncope for 2 days prior to admission. is at bedside on presentation to assist with history. The patient was walking to his recliner and felt lightheaded and fell to the ground. This happened again sometime later. Denied loss of consciousness, seizure activity, aura, blunt head trauma. [place] ER revealed blood pressure 93/61 and positive orthostatics, blood pressure when standing 70/57. Other workup was widely unremarkable. The patient's orthostatic hypotension improved with 2 L of fluids. Attempted to ambulate the patient in the ER but he had an unsteady gait therefore patient admitted on 11/05/2023 for unsteadiness, neuropathy, syncope, orthostatic hypotension. Upon admission nurse noted patient to have word-finding difficulty. CT scan head without contrast did not demonstrate acute abnormalities. Orthostatic hypotension is likely related to dehydration. Continue was saline at 100 cc/hour. Continue orthostatics Q shift. Patient will be seen by PT OT. Disposition pending therapy evaluations. cortisol stimulation test with very appropriate rise. continues to remain orthostatic. neurology consulted. abdominal binder ordered, compression stockings. added midodrine. MRI brain with no acute intracranial process. 12 x 6 mm Jarad cooler extra-axial mass along the right petrous apex, potentially chronic and status legally most likely to represent a meningioma. Mild scattered nonspecific white matter T2 hyperintensity is within normal limits for age and likely sequela of chronic small vessel ischemic disease. Started on fludrocortisone 11/09/2023 and increase the dose Continue to have orthostatic hypotension Seems a bit short of breath today. Chest x-ray with no acute finding. IV fluids. Echocardiogram reviewed Orthostatic vitals improved today. Will have PT OT see him benefit from going to rehabilitation will await their recommendations. F/E/N: Heart healthy diet GI prophylaxis: Not indicated DVT prophylaxis: Lovenox Lines: Peripheral IV Code Status: Patient wishes to be full code Dispo: Stable on medical floor. Subjective Date/time seen: 11/13/23 12:22 Interval history: No new complaints. Feeling okay. Denies any dizziness per se. Has not been up and about though. Blood pressure has been improved this a.m. Review of Systems Review of Systems: All systems reviewed & are unremarkable except as noted in HPI and below (Subjective) Exam Narrative: GENERAL: Well-appearing, well-nourished, and in no acute distress. Sitting up in bed HEAD: Normocephalic, atraumatic. EYES: PERRLA and EOMI. ENT: Nares clear, no rhinorrhea or epistaxis. Mucous membranes moist. NECK: Supple. CHEST: Clear to auscultation. No respiratory distress. HEART: Regular rate and rhythm. No murmur heard. Normal peripheral pulses. ABDOMEN: Soft, nontender, nondistended, normal active bowel sounds. EXTREMITIES: Normal range of motion. No edema. SKIN: Warm, dry, no rash. NEURO: No focal deficits. Alert and oriented x3 Objective Data Vital Signs Vital Signs: Vital Signs - 24 hr 11/12/23 14:00 11/12/23 20:00 11/12/23 20:00 Temperature 98.4 F 98.4 F Pulse Rate 62 62 62 Respiratory Rate 16 16 16 Blood Pressure 106/65 106/65 Pulse Oximetry 99 99 99 Oxygen Delivery Room Air 11/12/23 21:20 11/12/23 21:20 11/12/23 21:22 Temperature 97.4 F L Pulse Rate 59 L 59 L 64 Respiratory Rate 18 Blood Pressure 142/72 H 142/72 H 100/60 Pulse Oximetry 99 Oxygen Delivery 11/12/23 21:25 11/13/23 05:09 0
--- NOTE | 2023-11-13 13:33 | WPDNEUROPN ---
Subjective Date/time seen: 11/13/23 13:33 Interval history: ataxia with superimposed orthostatic hypotension for which he is receiving, Florinef 0.2mg daily in addition to milder drawn 10mg 3 times a day to be given at least 20minutes before he needs to get up in the morning for the morning chores and at the lunch for the lunchtime and in the evening to time the changes in the blood pressure regularly this particular instructions was explained to the and to the patient again if they do it very meticulously he will not become dizzy and not be able to involve in his activities no further questions were asked. Objective Data Vital Signs Vital Signs: Vital Signs - 24 hr 11/12/23 14:00 11/12/23 20:00 11/12/23 20:00 Temperature 36.9 C 36.9 C Pulse Rate 62 62 62 Respiratory Rate 16 16 16 Blood Pressure 106/65 106/65 Pulse Oximetry 99 99 99 Oxygen Delivery Room Air 11/12/23 21:20 11/12/23 21:20 11/12/23 21:22 Temperature 36.3 C L Pulse Rate 59 L 59 L 64 Respiratory Rate 18 Blood Pressure 142/72 H 142/72 H 100/60 Pulse Oximetry 99 Oxygen Delivery 11/12/23 21:25 11/13/23 05:09 11/12/23 20:48 Temperature 36.3 C L Pulse Rate 64 60 Respiratory Rate 18 Blood Pressure 77/53 L 129/74 Pulse Oximetry 100 99 Oxygen Delivery Room Air 11/13/23 09:54 11/13/23 09:54 11/13/23 09:55 Temperature Pulse Rate 64 65 74 Respiratory Rate Blood Pressure 119/69 112/59 L 97/60 L Pulse Oximetry 97 99 97 Oxygen Delivery Intake/Output Intake/Output: Intake & Output 11/10/23 11/11/23 11/12/23 11/13/23 23:59 23:59 23:59 23:59 Intake Total 0492 5934 8400 540 Output Total 3507 230 0846 1400 Balance 3630 6774 482 -865 Meds/Results Medications: Active Medications Generic Name Dose Route Start Last Admin Trade Name Freq PRN Reason Stop Dose Admin Enoxaparin Sodium 40 mg 11/05/23 17:20 11/13/23 08:42 Enoxaparin 40 Mg/0.4 Ml Syringe SUB-Q 40 mg DAILY NICOEL Administration Fludrocortisone Acetate 0.2 mg 11/12/23 08:00 11/13/23 08:42 Fludrocortisone Acetate 0.1 Mg Tablet PO 0.2 mg DAILY@0800 NICOLE Administration Sodium Chloride 1,000 mls @ 150 mls/hr 11/10/23 10:45 11/12/23 13:18 Normal Saline Iv IV CONT 0 mls/hr .[id number] NICOLE Infusion Midodrine 10 mg 11/09/23 09:00 11/13/23 08:42 Midodrine Hcl 10 Mg Tablet PO 10 mg TID NICOLE Administration Radiology Results: ITS Impressions Head CT 11/05/23 08:57 Impression: No significant abnormality seen. Brain MRI 11/07/23 16:46 IMPRESSION: 1. No acute intracranial process. 2. 12 x 6 mm lenticular extra-axial mass along the right petrous apex, potentially chronic and statistically most likely to represent a meningioma. Correlate with any prior outside imaging and could consider obtaining contrast-enhanced MRI to assess for dural continuity confirmed presence of any additional lesions. 3. Mild scattered nonspecific white matter T2 hyperintensity which is within normal limits for age and likely sequela of chronic small vessel ischemic disease. Chest X-Ray 11/12/23 13:58 IMPRESSION: 1. Bibasilar opacities, left greater than right, due at least in part to atelectasis although could not exclude superimposed pneumonia.
[2023-11-14] VITALS (7 sets, daily range): BP systolic 89–129; BP diastolic 54–79; PULSE 55–68; RESP 14–20; TEMP 36.1–36.5; O2SAT 98–100
[2023-11-14 05:17] LABS: Basophils Percent Auto 0.9 % (0.2-1.2); Eosinophils Absolute Auto 0.2 K/mm3 (0-0.3); Eosinophils Percent Auto 4.5 % (0-4.4); Hematocrit 41.8 % (42.0-52.0); Hemoglobin 14.2 g/dL (14.0-18.0); Immature Granulocyte Absolute 0.02 K/mm3 (0.00-0.031); Immature Granulocyte Percent A 0.5 % (0-0.5); Lymphocytes Percent Auto 28.2 % (18.3-44.2); Mean Corpuscular Volume 94.1 fl (80-100); Mean Platelet Volume 10.3 fl (7.4-10.4); Monocytes Absolute Auto 0.5 K/mm3 (0.1-0.6); Monocytes Percent Auto 10.6 % (2.6-8.5); Neutrophils Absolute Auto 2.4 K/mm3 (1.3-6.7); Neutrophils Percent Auto 55.3 % (45.5-73.1); Platelet Count Result 196 k/mm3 (150-375); Red Blood Count 4.44 M/mm3 (4.6-6.20); Red Cell Distribution Width 13.8 % (11.5-14.5); White Blood Count 4.3 K/mm3 (4.5-10.0)
[2023-11-14 05:31] LABS: Alanine Aminotransferase 16 U/L (6-50); Albumin Level 3.3 g/dL (3.5-5.1); Alkaline Phosphatase 40 U/L (38-126); Anion Gap 5 mmol/L (4-12); Aspartate Amino Transferase 23 U/L (17-59); Bilirubin,Total 0.9 mg/dL (0.2-1.3); Blood Urea Nitrogen 13 mg/dL (9-20); Calcium 9.5 mg/dL (8.4-10.2); Carbon Dioxide 32 mmol/L (22-30); Chloride 97 mmol/L (98-107); Estimated CRCL calculation 59 ml/min; Estimated Glomerular Filt Rate > 60; Glucose 81 mg/dL (65-110); Magnesium 2.1 mg/dL (1.6-2.3); Potassium 3.5 mmol/L (3.4-5.0); Sodium 134 mmol/L (137-145)
[2023-11-14] MEDS: FLUDROCORTISONE ACETATE 0.1 MG TABLET 0.2 MG PO (08:47)
[2023-11-14] MEDS: MIDODRINE HCL 10 MG TABLET PO ×3 (08:47→17:26)
[2023-11-14] MEDS: ENOXAPARIN 40 MG/0.4 ML SYRINGE SUB-Q (08:48)
--- NOTE | 2023-11-14 12:15 | PM.IMPN ---
Progress Note: A&P Assessment and Plan (1) Ataxia: Code(s): R27.0 - Ataxia, unspecified Status: Acute (2) Dehydration: Code(s): E86.0 - Dehydration Status: Acute (3) Orthostatic hypotension: Code(s): I95.1 - Orthostatic hypotension Status: Acute Plan Patient is a pleasant 83-year-old male with a PMH GERD, hyperlipidemia, neuropathy, gastritis who presents to [place] [facility] for weakness and presyncope for 2 days prior to admission. is at bedside on presentation to assist with history. The patient was walking to his recliner and felt lightheaded and fell to the ground. This happened again sometime later. Denied loss of consciousness, seizure activity, aura, blunt head trauma. [place] [facility] revealed blood pressure 93/61 and positive orthostatics, blood pressure when standing 70/57. Other workup was widely unremarkable. The patient's orthostatic hypotension improved with 2 L of fluids. Attempted to ambulate the patient in the ER but he had an unsteady gait therefore patient admitted on 11/05/2023 for unsteadiness, neuropathy, syncope, orthostatic hypotension. Upon admission nurse noted patient to have word-finding difficulty. CT scan head without contrast did not demonstrate acute abnormalities. Orthostatic hypotension is likely related to dehydration. Continue was saline at 100 cc/hour. Continue orthostatics Q shift. Patient will be seen by PT OT. Disposition pending therapy evaluations. cortisol stimulation test with very appropriate rise. continues to remain orthostatic. neurology consulted. abdominal binder ordered, compression stockings. added midodrine. MRI brain with no acute intracranial process. 12 x 6 mm Jarad cooler extra-axial mass along the right petrous apex, potentially chronic and status legally most likely to represent a meningioma. Mild scattered nonspecific white matter T2 hyperintensity is within normal limits for age and likely sequela of chronic small vessel ischemic disease. Started on fludrocortisone 11/09/2023 and increase the dose Continue to have orthostatic hypotension Seems a bit short of breath today. Chest x-ray with no acute finding. IV fluids. Echocardiogram reviewed Orthostatic vitals improved today. Will have PT OT see him benefit from going to rehabilitation will await their recommendations. F/E/N: Heart healthy diet GI prophylaxis: Not indicated DVT prophylaxis: Lovenox Lines: Peripheral IV Code Status: Patient wishes to be full code Dispo: Stable on medical floor. Subjective Date/time seen: 11/14/23 12:15 Interval history: no new complaints. Has not gotten up with therapy yet Review of Systems Review of Systems: All systems reviewed & are unremarkable except as noted in HPI and below (Subjective) Exam Narrative: GENERAL: Well-appearing, well-nourished, and in no acute distress. Sitting up in bed HEAD: Normocephalic, atraumatic. EYES: PERRLA and EOMI. ENT: Nares clear, no rhinorrhea or epistaxis. Mucous membranes moist. NECK: Supple. CHEST: Clear to auscultation. No respiratory distress. HEART: Regular rate and rhythm. No murmur heard. Normal peripheral pulses. ABDOMEN: Soft, nontender, nondistended, normal active bowel sounds. EXTREMITIES: Normal range of motion. No edema. SKIN: Warm, dry, no rash. NEURO: No focal deficits. Alert and oriented x3 Objective Data Vital Signs Vital Signs: Vital Signs - 24 hr 11/13/23 14:00 11/13/23 20:15 11/13/23 20:15 Temperature 98.2 F 98.6 F Pulse Rate 60 58 L 58 L Respiratory Rate 14 18 Blood Pressure 126/70 144/74 H 144/79 H Pulse Oximetry 99 99 Oxygen Delivery 11/13/23 20:18 11/13/23 20:20 11/13/23 20:57 Temperature Pulse Rate 63 68 Respiratory Rate Blood Pressure 106/68 96/72 L Pulse Oximetry Oxygen Delivery Room Air 11/13/23 21:38 11/14/23 06:00 11/14/23 10:29 Temperature 97 F L Pulse Rate 60 64 Respiratory Rate 20 Blood Pressure 122/79 1
[2023-11-15] VITALS (8 sets, daily range): BP systolic 80–133; BP diastolic 55–70; PULSE 54–70; RESP 14–20; TEMP 35.8–36.6; O2SAT 96–100
[2023-11-15] MEDS: FLUDROCORTISONE ACETATE 0.1 MG TABLET 0.2 MG PO (08:39)
[2023-11-15] MEDS: MIDODRINE HCL 10 MG TABLET PO ×3 (08:39→17:22)
[2023-11-15] MEDS: ENOXAPARIN 40 MG/0.4 ML SYRINGE SUB-Q (08:40)
--- NOTE | 2023-11-15 10:18 | PCOTNOTE ---
Attempted to see Patient for OT A.M. treatment session. Patient declined, I'm so tired and sleeping right now, come back at a later time .
--- NOTE | 2023-11-15 11:54 | PM.IMPN ---
Progress Note: A&P Assessment and Plan (1) Ataxia: Code(s): R27.0 - Ataxia, unspecified Status: Acute (2) Dehydration: Code(s): E86.0 - Dehydration Status: Acute (3) Orthostatic hypotension: Code(s): I95.1 - Orthostatic hypotension Status: Acute Plan Patient is a pleasant 83-year-old male with a PMH GERD, hyperlipidemia, neuropathy, gastritis who presents to [place] [facility] for weakness and presyncope for 2 days prior to admission. is at bedside on presentation to assist with history. The patient was walking to his recliner and felt lightheaded and fell to the ground. This happened again sometime later. Denied loss of consciousness, seizure activity, aura, blunt head trauma. [place] ER revealed blood pressure 93/61 and positive orthostatics, blood pressure when standing 70/57. Other workup was widely unremarkable. The patient's orthostatic hypotension improved with 2 L of fluids. Attempted to ambulate the patient in the ER but he had an unsteady gait therefore patient admitted on 11/05/2023 for unsteadiness, neuropathy, syncope, orthostatic hypotension. Upon admission nurse noted patient to have word-finding difficulty. CT scan head without contrast did not demonstrate acute abnormalities. Orthostatic hypotension is likely related to dehydration. Continue was saline at 100 cc/hour. Continue orthostatics Q shift. Patient will be seen by PT OT. Disposition pending therapy evaluations. cortisol stimulation test with very appropriate rise. continues to remain orthostatic. neurology consulted. abdominal binder ordered, compression stockings. added midodrine. MRI brain with no acute intracranial process. 12 x 6 mm Jarad cooler extra-axial mass along the right petrous apex, potentially chronic and status legally most likely to represent a meningioma. Mild scattered nonspecific white matter T2 hyperintensity is within normal limits for age and likely sequela of chronic small vessel ischemic disease. Started on fludrocortisone 11/09/2023 and increase the dose. Standing blood pressures improved significantly since then. Though he continues to have some orthostatic hypotension. He will need further rehabilitation at a rehab facility to strain than his muscle Echocardiogram reviewed Will get carotid ultrasound F/E/N: Heart healthy diet GI prophylaxis: Not indicated DVT prophylaxis: Lovenox Lines: Peripheral IV Code Status: Patient wishes to be full code Dispo: Stable on medical floor. Subjective Date/time seen: 11/15/23 11:54 Interval history: He work with therapy today. Was sitting up in the chair. Denies any dizziness. Blood pressure reasonable now. No other complaints. Review of Systems Review of Systems: All systems reviewed & are unremarkable except as noted in HPI and below (Subjective) Exam Narrative: GENERAL: Well-appearing, well-nourished, and in no acute distress. Sitting up in bed HEAD: Normocephalic, atraumatic. EYES: PERRLA and EOMI. ENT: Nares clear, no rhinorrhea or epistaxis. Mucous membranes moist. NECK: Supple. CHEST: Clear to auscultation. No respiratory distress. HEART: Regular rate and rhythm. No murmur heard. Normal peripheral pulses. ABDOMEN: Soft, nontender, nondistended, normal active bowel sounds. EXTREMITIES: Normal range of motion. No edema. SKIN: Warm, dry, no rash. NEURO: No focal deficits. Alert and oriented x3 Objective Data Vital Signs Vital Signs: Vital Signs - 24 hr 11/14/23 13:57 11/14/23 20:35 11/14/23 20:35 Temperature 97.7 F 97.1 F L Pulse Rate 60 55 L 55 L Respiratory Rate 14 18 Blood Pressure 114/62 129/67 129/67 Pulse Oximetry 99 99 Oxygen Delivery 11/14/23 20:38 11/14/23 20:40 11/14/23 20:50 Temperature Pulse Rate 57 L 64 Respiratory Rate Blood Pressure 109/72 89/60 L Pulse Oximetry Oxygen Delivery Room Air 11/15/23 06:00 11/15/23 08:20 Temperature 97.9 F Pulse Rate 60 Respiratory
[2023-11-15 12:42] LABS: Alanine Aminotransferase 21 U/L (6-50); Albumin Level 3.6 g/dL (3.5-5.1); Alkaline Phosphatase 39 U/L (38-126); Anion Gap 7 mmol/L (4-12); Aspartate Amino Transferase 28 U/L (17-59); Basophils Percent Auto 0.7 % (0.2-1.2); Bilirubin,Total 0.8 mg/dL (0.2-1.3); Blood Urea Nitrogen 16 mg/dL (9-20); Calcium 9.8 mg/dL (8.4-10.2); Carbon Dioxide 32 mmol/L (22-30); Chloride 96 mmol/L (98-107); Eosinophils Absolute Auto 0.1 K/mm3 (0-0.3); Eosinophils Percent Auto 1.1 % (0-4.4); Estimated CRCL calculation 52 ml/min; Estimated Glomerular Filt Rate > 60; Glucose 104 mg/dL (65-110); Hematocrit 43.6 % (42.0-52.0); Hemoglobin 14.9 g/dL (14.0-18.0); Immature Granulocyte Absolute 0.05 K/mm3 (0.00-0.031); Immature Granulocyte Percent A 0.8 % (0-0.5); Lymphocytes Absolute Auto 0.99 K/mm3 (0.9-3.2); Lymphocytes Percent Auto 16.2 % (18.3-44.2); Magnesium 2.1 mg/dL (1.6-2.3); Mean Corpuscular HGB Conc 34.2 g/dl (32-36); Mean Corpuscular Hemoglobin 31.9 pg (26-34); Mean Corpuscular Volume 93.4 fl (80-100); Mean Platelet Volume 9.9 fl (7.4-10.4); Monocytes Absolute Auto 0.5 K/mm3 (0.1-0.6); Monocytes Percent Auto 8.7 % (2.6-8.5); Neutrophils Absolute Auto 4.4 K/mm3 (1.3-6.7); Neutrophils Percent Auto 72.5 % (45.5-73.1); Platelet Count Result 231 k/mm3 (150-375); Potassium 3.4 mmol/L (3.4-5.0); Red Blood Count 4.67 M/mm3 (4.6-6.20); Red Cell Distribution Width 13.8 % (11.5-14.5); Sodium 135 mmol/L (137-145); White Blood Count 6.1 K/mm3 (4.5-10.0)
[2023-11-15] MEDS: POTASSIUM CHLORIDE 20 MEQ ER TABLET 40 MEQ PO (13:04)
--- NOTE | 2023-11-15 13:47 | PCOTNOTE ---
Attempted this P.M. to see Patient, Patient declined, stating he did some therapy already this morning, he prefers it then. Patient stated he had a bad morning and would like if OT could come back tomorrow morning. Patient's present at this time.
[2023-11-16] VITALS (8 sets, daily range): BP systolic 76–146; BP diastolic 51–76; PULSE 60–67; RESP 14–18; TEMP 36.6–36.7; O2SAT 96–99
[2023-11-16] MEDS: FLUDROCORTISONE ACETATE 0.1 MG TABLET 0.2 MG PO (08:43)
[2023-11-16] MEDS: MIDODRINE HCL 10 MG TABLET PO ×3 (08:43→16:57)
[2023-11-16] MEDS: ENOXAPARIN 40 MG/0.4 ML SYRINGE SUB-Q (08:43)
--- NOTE | 2023-11-16 13:43 | PM.IMPN ---
Progress Note: A&P Assessment and Plan (1) Ataxia: Code(s): R27.0 - Ataxia, unspecified Status: Acute (2) Dehydration: Code(s): E86.0 - Dehydration Status: Acute (3) Orthostatic hypotension: Code(s): I95.1 - Orthostatic hypotension Status: Acute Plan Patient is a pleasant 83-year-old male with a PMH GERD, hyperlipidemia, neuropathy, gastritis who presents to [place] ER for weakness and presyncope for 2 days prior to admission. is at bedside on presentation to assist with history. The patient was walking to his recliner and felt lightheaded and fell to the ground. This happened again sometime later. Denied loss of consciousness, seizure activity, aura, blunt head trauma. [place] [facility] revealed blood pressure 93/61 and positive orthostatics, blood pressure when standing 70/57. Other workup was widely unremarkable. The patient's orthostatic hypotension improved with 2 L of fluids. Attempted to ambulate the patient in the ER but he had an unsteady gait therefore patient admitted on 11/05/2023 for unsteadiness, neuropathy, syncope, orthostatic hypotension. Upon admission nurse noted patient to have word-finding difficulty. CT scan head without contrast did not demonstrate acute abnormalities. Orthostatic hypotension is likely related to dehydration. Continue was saline at 100 cc/hour. Continue orthostatics Q shift. Patient will be seen by PT OT. Disposition pending therapy evaluations. cortisol stimulation test with very appropriate rise. continues to remain orthostatic. neurology consulted. abdominal binder ordered, compression stockings. added midodrine. MRI brain with no acute intracranial process. 12 x 6 mm Jarad cooler extra-axial mass along the right petrous apex, potentially chronic and status legally most likely to represent a meningioma. Mild scattered nonspecific white matter T2 hyperintensity is within normal limits for age and likely sequela of chronic small vessel ischemic disease. Started on fludrocortisone 11/09/2023 and increase the dose. Standing blood pressures improved significantly since then but still present. discussed with neurology. will add pyridostigmine and see the response. Though he continues to have some orthostatic hypotension. He will need further rehabilitation at a rehab facility to strengthen his muscle Echocardiogram reviewed Carotid ultrasound unremarkable F/E/N: Heart healthy diet GI prophylaxis: Not indicated DVT prophylaxis: Lovenox Lines: Peripheral IV Code Status: Patient wishes to be full code Dispo: Stable on medical floor. Subjective Date/time seen: 11/16/23 13:43 Interval history: No overnight events. Denies any new complaints. Discussed with during the visit, orthostatic hypotension still mildly present but improved Review of Systems Review of Systems: All systems reviewed & are unremarkable except as noted in HPI and below (Subjective) Exam Narrative: GENERAL: Well-appearing, well-nourished, and in no acute distress. Sitting up in bed HEAD: Normocephalic, atraumatic. EYES: PERRLA and EOMI. ENT: Nares clear, no rhinorrhea or epistaxis. Mucous membranes moist. NECK: Supple. CHEST: Clear to auscultation. No respiratory distress. HEART: Regular rate and rhythm. No murmur heard. Normal peripheral pulses. ABDOMEN: Soft, nontender, nondistended, normal active bowel sounds. EXTREMITIES: Normal range of motion. No edema. SKIN: Warm, dry, no rash. NEURO: No focal deficits. Alert and oriented x3 Objective Data Vital Signs Vital Signs: Vital Signs - 24 hr 11/15/23 14:00 11/15/23 21:44 11/15/23 21:44 Temperature 97.6 F 96.5 F L Pulse Rate 59 L 54 L 54 L Respiratory Rate 20 14 Blood Pressure 108/65 133/70 133/70 Pulse Oximetry 96 100 Oxygen Delivery 11/15/23 21:47 11/15/23 21:59 11/15/23 20:40 Temperature Pulse Rate 63 69 Respiratory Rate Blood Pressure 87/64 L 81/56 L Pulse Oximetry Oxygen
[2023-11-16] MEDS: pyRIDostigmine bromide 30 MG TABLET PO ×2 (16:57→21:34)
[2023-11-16] MEDS: MIDODRINE HCL 2.5 MG TABLET 5 MG PO (16:58)
[2023-11-17] VITALS (9 sets, daily range): BP systolic 75–145; BP diastolic 54–75; PULSE 52–63; RESP 14–20; TEMP 36.4–36.6; O2SAT 95–100
[2023-11-17] MEDS: pyRIDostigmine bromide 30 MG TABLET PO ×3 (05:05→22:13)
[2023-11-17] MEDS: MIDODRINE HCL 10 MG TABLET PO ×3 (08:33→17:01)
[2023-11-17] MEDS: FLUDROCORTISONE ACETATE 0.1 MG TABLET 0.2 MG PO (08:33)
[2023-11-17] MEDS: ENOXAPARIN 40 MG/0.4 ML SYRINGE SUB-Q (08:33)
[2023-11-17] MEDS: CHOLECALCIFEROL 400 UNITS TABLET (VIT D) PO (08:33)
[2023-11-17] MEDS: CYANOCOBALAMIN 1,000 MCG TABLET 1000 MCG PO (08:33)
[2023-11-17] MEDS: MIDODRINE HCL 2.5 MG TABLET 5 MG PO ×3 (08:33→17:01)
--- NOTE | 2023-11-17 10:34 | PCNFU ---
Nutrition Follow-Up Complete: Unintended weight loss as related to possible gastritis as evidenced by 9 ib weight loss in 2 months. goal: Adequate Intake of at least 75% of meals/supplements Patient is meeting current goal. No new goal. Pt current nutrition is Heart Healthy with Ensure compact BID. Last recorded weight is 66.8 kg, no new weight. Bowel Motility: Last reported BM 11/08-nursing is aware. Labs Reviewed: Na 134 Meds Noted: Lovenox, Vit D, Vit B12 Skin: WNL Additional Notes: Patient remains on a heart healthy diet with Ensure Compact BID. Intake has been good 80-100% of meals. Agree with diet orders. Will monitor weight, labs, skin, oral intake, meds every 7 days.
--- NOTE | 2023-11-17 11:32 | WPDNEUROPN ---
Subjective Date/time seen: 11/17/23 11:32 Interval history: Significant ataxia with orthostatic hypotension for which he has received 1 Florinef 02.2mg Q morning, mild adrenal 15mg 3 times a day related to the time getting up from the bed to be given 15 to 20 minutes prior to the getting up, pyridostigmine 30mg q.8 hours just recently started. His MRI of the brain has shown along the right petrous apex most likely representing a meningioma but suggestion has been made to have the contrast enhanced MRI to evaluate the dural continue 80 and to rule out any aid additional lesion. The study has been order rest of the treatment is as such. Objective Data Vital Signs Vital Signs: Vital Signs - 24 hr 11/16/23 13:10 11/16/23 13:12 11/16/23 13:14 Temperature Pulse Rate 60 67 67 Respiratory Rate 18 18 18 Blood Pressure 117/68 90/64 L 76/51 L Pulse Oximetry 98 96 97 Oxygen Delivery 11/16/23 14:00 11/16/23 21:11 11/16/23 21:11 Temperature 36.6 C 36.7 C Pulse Rate 60 60 60 Respiratory Rate 18 14 Blood Pressure 117/68 146/76 H 146/76 H Pulse Oximetry 98 98 Oxygen Delivery 11/16/23 21:18 11/16/23 21:25 11/17/23 06:13 Temperature 36.6 C Pulse Rate 62 65 52 L Respiratory Rate 14 Blood Pressure 95/63 L 88/58 L 125/72 Pulse Oximetry 99 Oxygen Delivery 11/17/23 09:10 11/17/23 09:12 11/17/23 09:16 Temperature Pulse Rate 55 L 59 L 62 Respiratory Rate 18 20 18 Blood Pressure 105/65 96/54 L 75/59 L Pulse Oximetry 95 96 97 Oxygen Delivery 11/17/23 08:00 Temperature Pulse Rate Respiratory Rate Blood Pressure Pulse Oximetry Oxygen Delivery Room Air Intake/Output Intake/Output: Intake & Output 11/14/23 11/15/23 11/16/23 11/17/23 23:59 23:59 23:59 23:59 Intake Total 820 1780 830 610 Output Total 6804 221 7377 1000 Balance -430 830 -370 -390 Meds/Results Medications: Active Medications Generic Name Dose Route Start Last Admin Trade Name Freq PRN Reason Stop Dose Admin Cyanocobalamin 1,000 mcg 11/17/23 09:00 11/17/23 08:33 Cyanocobalamin 1,000 Mcg Tablet PO 1,000 mcg QAM NICOLE Administration Enoxaparin Sodium 40 mg 11/05/23 17:20 11/17/23 08:33 Enoxaparin 40 Mg/0.4 Ml Syringe SUB-Q 40 mg DAILY NICOLE Administration Fludrocortisone Acetate 0.2 mg 11/12/23 08:00 11/17/23 08:33 Fludrocortisone Acetate 0.1 Mg Tablet PO 0.2 mg DAILY@0800 NICOLE Administration Midodrine 5 mg 11/16/23 17:00 11/17/23 08:33 Midodrine Hcl 2.5 Mg Tablet PO 5 mg TID NICOLE Administration Midodrine 10 mg 11/16/23 17:00 11/17/23 08:33 Midodrine Hcl 10 Mg Tablet PO 10 mg TID NICOLE Administration Pyridostigmine [place] 30 mg 11/16/23 16:10 11/17/23 05:05 Pyridostigmine [place] 30 Mg Tablet PO 30 mg Q8HR NICOLE Administration Vitamin D 400 units 11/17/23 09:00 11/17/23 08:33 Cholecalciferol 400 Units Tablet (Vit D) PO 400 units QAM NICOLE Administration Radiology Results: ITS Impressions Head CT 11/05/23 08:57 Impression: No significant abnormality seen. Brain MRI 11/07/23 16:46 IMPRESSION: 1. No acute intracranial process. 2. 12 x 6 mm lenticular extra-axial mass along the right petrous apex, potentially chronic and statistically most likely to represent a meningioma. Correlate with any prior outside imaging and could consider obtaining contrast-enhanced MRI to assess for dural continuity confirmed presence of any additional lesions. 3. Mild scattered nonspecific white matter T2 hyperintensity which is within normal limits for age and likely sequela of chronic small vessel ischemic disease. Chest X-Ray 11/12/23 13:58 IMPRESSION: 1. Bibasilar opacities, left greater than right, due at least in part to atelectasis although could not exclude superimposed pneumonia. Carotid Doppler Study 11/15/23 15:41 IMPRESSION: 1. <50% stenosis in the right internal carotid artery. 2. <50% stenosis in the left internal
--- NOTE | 2023-11-17 11:59 | PM.IMPN ---
Progress Note: A&P Assessment and Plan (1) Orthostatic hypotension: Code(s): I95.1 - Orthostatic hypotension Status: Acute Assessment and Plan: Keli presents with weakness and presyncope for 2 days prior to admission. Initially felt orthostatic hypotension is likely related to dehydration. Treated approrpriately with IV fluids. Cortisol stimulation test with very appropriate rise. He continued to remain orthostatic. B12 low end of normal but MMA normal. VitD insufficient. Folate, TSH normal. MRI brain as below. Echo showing normal LV systolic function with EF of 65-70%, grade 1 diastolic dysfunction and mildly enlarged RV Carotid ultrasound was unremarkable. He is markedly fluid positive although does not appear to be fluid overloaded. Albumin is normal. Neurology consulted. Abdominal binder ordered, compression stockings. Midodrine, Florinef and now mestinon added He continues to have some orthostatic hypotension. He will need further rehabilitation at a rehab facility to strengthen his muscle Replace vitamin-D and B12. Check blood pressures in all 4 extremities. Already on high-dose midodrine and Florinef. (2) Ataxia: Code(s): R27.0 - Ataxia, unspecified Status: Acute Assessment and Plan: Patient with ataxia felt related to orthostaic HoTN. MRI brain showing no acute intracranial process. 12 x 6 mm [place] cooler extra-axial mass along the right petrous apex, potentially chronic and statistically most likely to represent a meningioma. Mild scattered nonspecific white matter T2 hyperintensity is within normal limits for age and likely sequela of chronic small vessel ischemic disease. Discussed with neurology about utility of repeat MRI of the brain contrast to exclude underlying mass is. Neurology agreed. Repeat brain MRI with contrast ordered. (3) Dehydration: Code(s): E86.0 - Dehydration Status: Acute Assessment and Plan: As above. Patient is eating 90-100% of all meals. Resolved. Plan DVT prophylaxis: Lovenox Code Status: full code Subjective Date/time seen: 11/17/23 11:59 Interval history: 83yo male with hx of GERD, hyperlipidemia, neuropathy, gastritis who presents to [place] ER for weakness and presyncope for 2 days prior to admission. Assuming care. Chart reviewed. No problems overnight. No chest pain. No shortness of breath. No nausea or vomiting. He feels slightly lightheaded with standing. Eating okay. No bowel movement for few days. Exam Narrative: AF 97.8 62 18 97% ra Supine 105/65 -> Sitting 96/54 -> Standing 75/59 Gen - NARD Chest - CTA bilaterally, nml RR CV - RRR S1/S2 Abd - Soft, NT/ND, Positive BS Ext - No pedal edema Neuro - Alert and oriented x4. Nonfocal exam. Psych - Nml mood and affect Skin - Warm and dry Objective Data Vital Signs Vital Signs: Vital Signs - 24 hr 11/16/23 13:10 11/16/23 13:12 11/16/23 13:14 Temperature Pulse Rate 60 67 67 Respiratory Rate 18 18 18 Blood Pressure 117/68 90/64 L 76/51 L Pulse Oximetry 98 96 97 Oxygen Delivery 11/16/23 14:00 11/16/23 21:11 11/16/23 21:11 Temperature 97.9 F 98.1 F Pulse Rate 60 60 60 Respiratory Rate 18 14 Blood Pressure 117/68 146/76 H 146/76 H Pulse Oximetry 98 98 Oxygen Delivery 11/16/23 21:18 11/16/23 21:25 11/17/23 06:13 Temperature 97.8 F Pulse Rate 62 65 52 L Respiratory Rate 14 Blood Pressure 95/63 L 88/58 L 125/72 Pulse Oximetry 99 Oxygen Delivery 11/17/23 09:10 11/17/23 09:12 11/17/23 09:16 Temperature Pulse Rate 55 L 59 L 62 Respiratory Rate 18 20 18 Blood Pressure 105/65 96/54 L 75/59 L Pulse Oximetry 95 96 97 Oxygen Delivery 11/17/23 08:00 Temperature Pulse Rate Respiratory Rate Blood Pressure Pulse Oximetry Oxygen Delivery Room Air Intake/Output Intake/Output: Intake & Output 11/14/23 11/15/23 11/16/23 11/17/23 23:59 23:59 23:59 23
[2023-11-17] MEDS: polyethylene glycoL 3350 17 GM POWD.PACK PO (12:33)
[2023-11-17] MEDS: BISACODYL 10 MG SUPPOSITORY RECTAL (15:36)
[2023-11-17] MEDS: SODIUM CHLORIDE 1 GM TABLET PO (18:25)
[2023-11-18] VITALS (10 sets, daily range): BP systolic 73–140; BP diastolic 48–74; PULSE 50–70; RESP 16–20; TEMP 36.4–36.6; O2SAT 94–100
[2023-11-18] MEDS: pyRIDostigmine bromide 30 MG TABLET PO ×3 (05:55→21:49)
--- NOTE | 2023-11-18 06:04 | PC.NURSE ---
reviewed and agree with all charting and assessments by Karo GREENE
[2023-11-18 06:24] LABS: Basophils Percent Auto 0.6 % (0.2-1.2); Eosinophils Absolute Auto 0.3 K/mm3 (0-0.3); Eosinophils Percent Auto 4.2 % (0-4.4); Hematocrit 42.1 % (42.0-52.0); Hemoglobin 14.3 g/dL (14.0-18.0); Immature Granulocyte Absolute 0.06 K/mm3 (0.00-0.031); Immature Granulocyte Percent A 0.9 % (0-0.5); Lymphocytes Absolute Auto 1.95 K/mm3 (0.9-3.2); Lymphocytes Percent Auto 29.3 % (18.3-44.2); Mean Corpuscular Hemoglobin 32.4 pg (26-34); Mean Corpuscular Volume 95.2 fl (80-100); Mean Platelet Volume 9.7 fl (7.4-10.4); Monocytes Absolute Auto 0.6 K/mm3 (0.1-0.6); Monocytes Percent Auto 8.4 % (2.6-8.5); Neutrophils Absolute Auto 3.8 K/mm3 (1.3-6.7); Neutrophils Percent Auto 56.6 % (45.5-73.1); Platelet Count Result 245 k/mm3 (150-375); Red Blood Count 4.42 M/mm3 (4.6-6.20); Red Cell Distribution Width 14.1 % (11.5-14.5); White Blood Count 6.7 K/mm3 (4.5-10.0)
[2023-11-18 06:48] LABS: Alanine Aminotransferase 28 U/L (6-50); Albumin Level 3.5 g/dL (3.5-5.1); Alkaline Phosphatase 40 U/L (38-126); Anion Gap 5 mmol/L (4-12); Aspartate Amino Transferase 30 U/L (17-59); Bilirubin,Total 0.6 mg/dL (0.2-1.3); Blood Urea Nitrogen 13 mg/dL (9-20); CRP 0.5 mg/dL (<1.0); Calcium 9.6 mg/dL (8.4-10.2); Carbon Dioxide 30 mmol/L (22-30); Chloride 99 mmol/L (98-107); Estimated CRCL calculation 48 ml/min; Estimated Glomerular Filt Rate > 60; Glucose 84 mg/dL (65-110); Magnesium 2.2 mg/dL (1.6-2.3); Phosphorus 3.2 mg/dL (2.5-4.5); Potassium 3.8 mmol/L (3.4-5.0); Sodium 134 mmol/L (137-145)
[2023-11-18 07:24] LABS: Erythrocyte Sedimentation Rate 22 mm/hr (0-20)
[2023-11-18] MEDS: SODIUM CHLORIDE 1 GM TABLET PO ×2 (08:29→17:04)
[2023-11-18] MEDS: FLUDROCORTISONE ACETATE 0.1 MG TABLET 0.2 MG PO (08:29)
[2023-11-18] MEDS: MIDODRINE HCL 2.5 MG TABLET 5 MG PO ×3 (08:29→17:04)
[2023-11-18] MEDS: MIDODRINE HCL 10 MG TABLET PO ×3 (08:29→17:04)
[2023-11-18] MEDS: CHOLECALCIFEROL 400 UNITS TABLET (VIT D) PO (08:29)
[2023-11-18] MEDS: polyethylene glycoL 3350 17 GM POWD.PACK PO (08:30)
[2023-11-18] MEDS: ENOXAPARIN 40 MG/0.4 ML SYRINGE SUB-Q (08:30)
[2023-11-18] MEDS: CYANOCOBALAMIN 1,000 MCG TABLET 1000 MCG PO (08:30)
--- NOTE | 2023-11-18 17:42 | PM.IMPN ---
Progress Note: A&P Assessment and Plan (1) Orthostatic hypotension: Code(s): I95.1 - Orthostatic hypotension Status: Acute Assessment and Plan: Keli presents with weakness and presyncope for 2 days prior to admission. Initially felt orthostatic hypotension is likely related to dehydration. Treated approrpriately with IV fluids. Cortisol stimulation test with very appropriate rise. He continued to remain orthostatic. B12 low end of normal but MMA normal. VitD insufficient. Folate, TSH normal. Vitamin-D and B12 ordered. MRI brain as below. Echo showing normal LV systolic function with EF of 65-70%, grade 1 diastolic dysfunction and mildly enlarged RV Carotid ultrasound was unremarkable. He is markedly fluid positive although does not appear to be fluid overloaded. Albumin is normal. Neurology consulted. Abdominal binder ordered, compression stockings. Midodrine, Florinef and pyridostigmine added. NaCl tabs ordered. Do not have Droxidopa or atomoxetine. He continues to have orthostatic hypotension. Despite the continued drop in his BP, he is doing well with therapy and lezama snot qualify for a rehab facility Fludrocortisone can take up to 7 days to take effects so should be at full potential Continue current medications. (2) Ataxia: Code(s): R27.0 - Ataxia, unspecified Status: Acute Assessment and Plan: Patient with ataxia felt related to orthostaic HoTN. MRI brain showing no acute intracranial process. 12 x 6 mm Jarad cooler extra-axial mass along the right petrous apex, potentially chronic and statistically most likely to represent a meningioma. Mild scattered nonspecific white matter T2 hyperintensity is within normal limits for age and likely sequela of chronic small vessel ischemic disease. Repeat brain MRI with contrast confirming meninioma without other concerning findings. (3) Dehydration: Code(s): E86.0 - Dehydration Status: Acute Assessment and Plan: As above. Patient is eating 90-100% of all meals. Resolved. Plan DVT prophylaxis: Lovenox Code Status: full code Subjective Date/time seen: 11/18/23 17:42 Interval history: 83yo male with hx of GERD, hyperlipidemia, neuropathy, gastritis who presents to [place] ER for weakness and presyncope for 2 days prior to admission. Feeling better. Was up walking in the room with walker. He is not sure how long it takes before the lightheadedness resolves when standing. Exam Narrative: AF 97.8 50 18 99% ra Supine 140/74 -> Sitting 101/65 -> Standing 78/53 Gen - NARD Chest - CTA bilaterally, nml RR CV - RRR S1/S2 Abd - Soft, NT/ND, Positive BS Ext - No pedal edema Neuro - Alert and oriented x4. Nonfocal exam. Psych - Nml mood and affect Skin - Warm and dry Objective Data Vital Signs Vital Signs: Vital Signs - 24 hr 11/17/23 19:40 11/17/23 19:43 11/17/23 19:46 Temperature 97.6 F 97.6 F 97.6 F Pulse Rate 58 L 58 L 63 Respiratory Rate 17 18 18 Blood Pressure 133/69 106/66 92/61 L Pulse Oximetry 100 100 98 Oxygen Delivery 11/17/23 19:49 11/17/23 20:00 11/18/23 01:41 Temperature 97.6 F Pulse Rate 58 L 58 L Respiratory Rate 17 17 Blood Pressure 133/69 Pulse Oximetry 100 100 Oxygen Delivery Room Air Room Air 11/18/23 05:16 11/18/23 09:15 11/18/23 09:18 Temperature 97.6 F Pulse Rate 57 L 55 L 60 Respiratory Rate 18 20 18 Blood Pressure 118/69 130/73 94/63 L Pulse Oximetry 99 98 94 Oxygen Delivery 11/18/23 09:22 11/18/23 08:00 11/18/23 14:00 Temperature 97.8 F Pulse Rate 70 50 L Respiratory Rate 16 18 Blood Pressure 89/59 L 140/74 Pulse Oximetry 98 99 Oxygen Delivery Room Air 11/18/23 14:00 11/18/23 14:00 11/18/23 14:00 Temperature Pulse Rate Respiratory Rate Blood Pressure 140/74 101/65 78/53 L Pulse Oximetry Oxygen Delivery Intake/Output Intake/Output: Intake & Output 11/15/2310/19
[2023-11-19] MEDS: pyRIDostigmine bromide 30 MG TABLET PO ×2 (05:21→13:10)
[2023-11-19 05:35] VITALS: BP 115/66; PULSE 56; RESP 17; TEMP 36.7; O2SAT 97
[2023-11-19] MEDS: MIDODRINE HCL 10 MG TABLET PO ×2 (08:47→13:11)
[2023-11-19] MEDS: CHOLECALCIFEROL 400 UNITS TABLET (VIT D) PO (08:47)
[2023-11-19] MEDS: CYANOCOBALAMIN 1,000 MCG TABLET 1000 MCG PO (08:48)
[2023-11-19] MEDS: MIDODRINE HCL 2.5 MG TABLET 5 MG PO ×2 (08:48→13:10)
[2023-11-19] MEDS: FLUDROCORTISONE ACETATE 0.1 MG TABLET 0.2 MG PO (08:48)
[2023-11-19] MEDS: SODIUM CHLORIDE 1 GM TABLET PO ×2 (08:48→13:10)
[2023-11-19] MEDS: ENOXAPARIN 40 MG/0.4 ML SYRINGE SUB-Q (08:49)
[2023-11-19 09:00] VITALS: BP 119/67; PULSE 55; O2SAT 99
[2023-11-19 10:02] VITALS: BP 104/71; BP 84/57; PULSE 58; PULSE 65; O2SAT 97; O2SAT 98
--- NOTE | 2023-11-19 11:38 | PM.DS ---
DS: Admitting Diagnosis Discharge Date 11/19/23 Admitting Diagnosis Weakness and presyncope DS: Discharge Diagnosis Discharge Diagnosis (1) Ataxia: Code(s): R27.0 - Ataxia, unspecified Status: Acute (2) Dehydration: Code(s): E86.0 - Dehydration Status: Acute DS: Summary Hospital Course Reason for hospitalization: 83yo male with hx of GERD, hyperlipidemia, neuropathy, gastritis who presents to [place] ER for weakness and presyncope for 2 days prior to admission. Please see H&P for details. Hospital Course: Patient presented with weakness and presyncope for 2 days prior to admission. Initially felt orthostatic hypotension is likely related to dehydration and he was treated appropriately with IV fluids. Cortisol stimulation test with very appropriate rise. He continued to remain orthostatic. B12 low end of normal but MMA normal. VitD insufficient. Folate, TSH normal. Vitamin-D and B12 replacement ordered. MRI brain without contrast showing no acute intracranial process. 12 x 6 mm [place] cooler extra-axial mass along the right petrous apex, potentially chronic and statistically most likely to represent a meningioma. Mild scattered nonspecific white matter T2 hyperintensity is within normal limits for age and likely sequela of chronic small vessel ischemic disease. Repeat brain MRI with contrast confirming meningioma without other concerning findings. Echo showing normal LV systolic function with EF of 65-70%, grade 1 diastolic dysfunction and mildly enlarged RV. Rt atrial, PA and RV pressures were normal. Carotid ultrasound was unremarkable. He is markedly fluid positive although does not appear to be fluid overloaded. Albumin was normal. Neurology consulted. Abdominal binder and compression stockings ordered. Midodrine, Florinef and then pyridostigmine added in stepwise fashion. NaCl tabs ordered. Do not have Droxidopa or atomoxetine. He continues to have orthostatic hypotension. Patient continued to eat well. Despite the continued drop in his BP, he was doing well with therapy and does not qualify for a rehab facility. He was eager for discharge. He voiced understanding of need to stand slowly and wait before walking. He overall did well and was able to be discharged home on 11/19/23. Status at Discharge Cognitive/behavioral status at discharge: stable Time Spent with Patient Time attestation: Total time spent providing and/or coordinating discharge services: 36 minutes Time spent: Greater than 30 minutes Exam Narrative: AF 98.0 65 17 97% ra Supine 119/67 -> Sitting 104/71 -> Standing 84/57 Gen - NARD Chest - CTA bilaterally, nml RR CV - RRR S1/S2 Abd - Soft, NT/ND, Positive BS Ext - No pedal edema Psych - Nml mood and affect Skin - Warm and dry Discharge Plan Discharge Attending physician on discharge: Blake Mcleod Consulting providers: Clive Limon Discharging Clinician: Blake Mcleod Anticipated Discharge Date/Time: 11/19/23 11:48 Patient Disposition: Home Health Service Activity: other - see discharge instructions Diet: regular Discharge Instructions: Per Care Coordination. Patient to have [facility] for RN/PT/OT eval and treat [phone]. They will contact family to schedule first visit. Check blood pressure 1 to 2 times a day. Record and bring into your doctor for review. Call your doctor if your blood pressure is less than 85/40. Wear the compression hose and abdominal binder on in the morning and off at bedtime. Take precautions to avoid falls. Rise slowly from a lying or sitting position. Pause before standing or walking. Contact your doctor or call 911 and come to the Emergency Room if you have any type of trauma, persistent lightheadedness with standing or other worrisome symptoms. Avoid NSAIDs (ibuprofen, naproxen, Aleve). Tylenol is safe to take. Follow-up with your primary care provider in 1-2 weeks. Please call for appoi
--- NOTE | 2023-11-19 16:20 | PC.NURSE ---
Spoke with provider regarding pharmacy's inability to fill pyridostygmine until Wednesday. Spoke with different area pharmacies with no luck. Provider stated if patient symptoms are worsening to educate them to come back to ER. No other replacements for provider to order at this time.
== END 2023-11-19 13:43 | disposition home health service (06) | DRG 312 ==
LOC: ANHED 21:31 → ANH3MEDSUR 23:00 → ANH2MED 23:56
PROVIDERS: Emergency Medicine; General Practice; Internal Medicine; Psychiatry & Neurology Neurology; Admitting Provider Internal Medicine; Emergency Provider Physician Assistant; PCP Internal Medicine; Visit Provider Internal Medicine
DX: I95.1 Orthostatic hypotension (principal); R27.0 Ataxia, unspecified; E86.0 Dehydration; K21.9 Gastro-esophageal reflux disease without esophagitis; E78.5 Hyperlipidemia, unspecified; G62.9 Polyneuropathy, unspecified; K29.70 Gastritis, unspecified, without bleeding; D50.9 Iron deficiency anemia, unspecified; Z86.16 Personal history of COVID-19; Z86.718 Personal history of other venous thrombosis and embolism; Z87.11 Personal history of peptic ulcer disease; Z85.46 Personal history of malignant neoplasm of prostate; Z90.49 Acquired absence of other specified parts of digestive tract; Z96.1 Presence of intraocular lens; Z98.49 Cataract extraction status, unspecified eye; Z87.891 Personal history of nicotine dependence
CPT/HCPCS: 36415; 70450; 70551; 70553; 71045; 71046; 80048; 80053; 80061; 81001; 82306; 82533; 82607; 82746; 83735; 83880; 83921; 84100; 84443; 84484; 85025; 85027; 85610; 85652; 85730; 86140; 93005; 93880; 96360; 96361; 96372; 97110; 97161; 97165; 97530; 97535; 99285; A9270; A9577; C8929; G0378; J0834; J1650; J7030; Q9957